=== PATIENT | male | born 1955 | race Caucasian/White ===

== ENCOUNTER → 2024-06-21 | Outpatient (CLI) | payer MEDICARE, MEDICAID, SELFPAY ==
[2024-06-21 11:33] LABS: Basophils % (Auto) 1 % (0-2.5); Eosinophils # (Auto) 0.3 Thou/mm3 (0.0-0.5); Eosinophils % (Auto) 4 % (0-10); Hematocrit 37.2 % (41.0-53.0); Hemoglobin 12.7 g/dL (13.5-16.0); Immature Granulocytes % (Auto) 0 % (0-0); Immature Granulocytes Auto 0.01 Thou/mm3 (0.00-0.00); Lymphocytes # (Auto) 1.5 Thou/mm3 (1.0-4.8); Lymphocytes % (Auto) 21 % (10-50); Mean Corpuscular HGB Conc 34.1 g/dl (31.0-37.0); Mean Corpuscular Hemoglobin 30.8 pg (25.0-35.0); Mean Corpuscular Volume 90 fL (80-100); Monocytes # (Auto) 0.5 Thou/mm3 (0.0-0.8); Monocytes % (Auto) 8 % (0-12); Neutrophils # (Auto) 4.6 Thou/mm3 (1.8-7.7); Neutrophils % (Auto) 67 % (37-80); Nucleated Red Blood Cell % 0 /100 WBC (0); Platelet Count 184 Thou/mm3 (140-440); RDW Standard Deviation 44.2 fL (35.1-43.9); Red Blood Count 4.12 Miln/mm3 (4.50-5.90); White Blood Count 6.9 Thou/mm3 (3.8-10.6)
[2024-06-21 11:36] LABS: INR 1.1 (0.9-1.3); Prothrombin Time 11.9 Seconds (9.0-12.2)
[2024-06-21 11:49] LABS: Glucose Estimated Average 217 mg/dL (80-131); Hemoglobin A1C 9.2 % Hgb (4.8-6.0)
[2024-06-21 11:55] LABS: Alanine Aminotransferase 42 U/L (10-49); Albumin, Serum 4.1 gm/dL (3.4-4.8); Albumin/Globulin Ratio 2.1 (1.2-2.2); Alkaline Phosphatase 126 U/L (46-116); Anion Gap 6 (7-16); Aspartate Amino Transferase 17 U/L (0-34); BUN/Creatinine Ratio 16 Ratio (12-20); Bilirubin,Total 0.6 mg/dL (0.3-1.2); Blood Urea Nitrogen 13 mg/dL (9-23); Calcium 9.6 mg/dL (8.3-10.6); Calcium (Corrected) 9.6 mg/dL (8.5-10.1); Carbon Dioxide 27.9 mMol/L (20.0-31.0); Chloride 101 mMol/L (98-107); Creatinine (Component) 0.8 mg/dL (0.6-1.3); Glucose 269 mg/dL (74-106); Osmolality,Calculated 279 (275-295); Potassium 4.1 mMol/L (3.4-5.1); Sodium 135 mMol/L (136-145); Total Protein 6.1 gm/dL (5.7-8.2); eGFR > 60 See Note
== END | disposition home or self-care (01) ==
LOC: COPL 10:34
PROVIDERS: PCP Family Medicine; Referring Provider Family Medicine; Visit Provider Family Medicine
DX: E11.65 Type 2 diabetes mellitus with hyperglycemia (principal); M54.50 Low back pain, unspecified
CPT/HCPCS: 36415; 80053; 83036; 85025; 85610; 85730

== ENCOUNTER 2024-10-09 09:43 | Inpatient (IN) | payer MEDICARE, MEDICAID, SELFPAY ==
[2024-10-09] VITALS (42 sets, daily range): BP systolic 80–132; BP diastolic 44–112; PULSE 74–94; RESP 14–22; TEMP 36.3–38.3; O2SAT 84–100; BMI 24.8; BMI 24.1
--- NOTE | 2024-10-09 09:50 | XR_ITS ---
Examination: AP chest single view Technique one AP portable semiupright chest single view Exam date and time: August 23, 2021 at 0655 hrs. Comparison August 31, 2021 Indications: Chest pain today. Findings: Normal heart size Mild vascular congestion. No lobar pneumonia Significant osteopenia Impression: Mild vascular congestion
--- NOTE | 2024-10-09 09:50 | EKG_ITS ---
[facility] Test Date: 2024-10-09 Pat Name: HALIMA STAHL Department: Room: - Gender: Male Gi Technician: : 1955 Requested By: Pallavi Garza Order Number: [id number] Reading MD: Pallavi Garza Measurements Intervals [place] Rate: 92 P: 50 VT: 190 QRS: 43 QRSD: 82 T: 64 QT: 341 QTc: 423 Interpretive Statements SINUS RHYTHM Compared to ECG 03/25/2020 18:40:41 No significant changes /store/S0/[id number].pdf
--- NOTE | 2024-10-09 10:11 | PD.EDADULT ---
ED General RME/HPI General Chief complaint: Altered Mental Status Stated complaint: ALTERED MORE THAN NORMAL; HX DEMENTIA Time Seen by Provider: 10/09/24 09:50 Arrival date/time: 10/09/24 09:43 RME / HPI RME / HPI narrative: DR. FREIRE MAIN ED EVALUATION: 69 year old male with past medical history significant for dementia, hypertension, and insulin-dependent diabetes mellitus presents to the Emergency Department [facility] with complaint of altered mental status, confused more than usual per ex-. Patient states his bed is high off the floor and he tried to get out of bed but his slippers were slippery and he slipped and fell; patient denies hurting himself and denies any injury. Patient states there is nothing wrong with him that his ex- made him come. However, patient does have a productive cough, hypoxia satting at 84% on room air, and a fever. He states he has the fever for 3 weeks. He is a former smoker, he quit August 2024. Related Data Home Medications ?Medication ?Instructions ?Recorded ?Confirmed dulaglutide 1.5 mg/0.5 mL 1.5 mg subcut QWEEK 03/23/20 08/31/21 subcutaneous pen injector (Trulicity) insulin aspart U-100 100 unit/mL See Rx Instructions .Route .COMPLEX 03/23/20 08/31/21 (3 mL) subcutaneous pen (Novolog FlexPen U-100 Insulin aspart) cyclobenzaprine 10 mg tablet 10 mg PO Q8H 08/23/21 08/31/21 dapagliflozin propanediol 10 mg 10 mg PO QDAY 08/23/21 08/31/21 tablet (Farxiga) metformin 1,000 mg tablet 1,000 mg PO BID 08/23/21 08/31/21 Previous Rx's ?Medication ?Instructions ?Recorded insulin glargine 100 unit/mL (3 40 unit (0.4 mL) subcut QPM #15 mL 08/29/21 mL) subcutaneous pen (Lantus Solostar U-100 Insulin) Allergies Allergy/AdvReac Type Severity Reaction Status Date / Time Sulfa (Sulfonamide Allergy Severe RASH Verified 10/09/24 09:44 Antibiotics) Review of Systems Review of Systems Systems Reviewed: All systems reviewed, normal except as documented Narrative Review of Systems: GEN: + fever, no chills, no weight loss EYES: No discharge, no visual changes, no pain HEENT: No ear pain, no congestion, no sore throat PULM: No shortness of breath, + productive cough CV: No chest pain, no dyspnea on exertion, no palpitations GI: No nausea, no vomiting, no diarrhea, no pain, no constipation : No frequency, no urgency and no dysuria MUSC/SKEL: No joint pain, no back pain SKIN: No rash PSYCH: No hallucinations, no depression HEME/LYMPH: No easy bleeding or bruising tendencies NEURO: No weakness, no headache, + altered mental status, confused more than usual per ex- Past Medical History Past Medical History NEUROLOGIC: Positive Neurological Disorders, Peripheral Neuropathy and Head Trauma CARDIAC: Positive Cardiac Disorders and Hypertension; Negative Hypercholesterolemia or Congestive Heart Failure RESPIRATORY: Positive Pneumonia; Negative Chronic Obstructive Pulmonary Disease (COPD) or Asthma GASTROINTESTINAL: Negative Gastrointestinal Disorders GENITOURINARY: Positive Genitourinary Disorders and Kidney Stones; Negative Renal Disease REPRODUCTIVE: Negative Breast Cancer MUSCULOSKELETAL: Positive Musculoskeletal Disorders, Arthritis and Fractures ENT: Positive Deafness and Head Trauma ENDOCRINE: Positive Endocrine Disorders and Diabetes Mellitus Type 2; Negative Diabetes Mellitus Type 1 HEMATOLOGIC: Negative Blood Disorders or Sickle Cell Disease OTHER HISTORY: Positive Measles and Mumps; Negative Autoimmune Disease, Blood Transfusions, Anesthesia Reactions, MRSA, Vancomycin-Resistant Enterococci, Human Immunodeficiency Virus (HIV), Chicken Pox, Pertussis, Clostridium Difficile, Cancer or Breast Cancer Family History FAMILY HISTORY: Positive Family Cardiac Disorders and Family Cancer Surgical History SURGICAL: Positive Tonsillectomy; Negative Cardiac Surgery Social History SMOKING STATUS: Former smoker SUBSTANCE USE: does not use ED Exam Narrative Physical exam: GENERAL APPEARANCE: alert and oriented x 4, well-developed, well-nourished, no acute distress; patient has a productive sounding cough. VITALS: All vitals were reviewed and the pulse ox is 84% on room air, which is hypoxic according to my interpretation. HEENT: Normocephalic, atraumatic; pupils equal, round, reactive to light; EOMI; mucous membranes pink, moist; oropharynx clear NECK: Supple LUNGS: CTABL; no wheezes, no rales, no rhonchi HEART: Regular rate, regular rhythm; normal S1, S2; no murmurs ABDOMEN: non distended; normal BS; soft, no tenderness, no guarding, no rebound; no masses, no organomegaly, no hernia BACK: no CVA tenderness EXTREMITIES: atraumatic; no edema NEUROLOGIC: awake; alert and oriented x4; cranial nerves II-XII grossly intact; no focal sensory or motor deficits PSYCHIATRIC: appropriate mood and affect SKIN: warm, dry, normal color; no rashes Course Course Course Narrative: 1059: Sepsis alert initiated. Orders made at this time are congruent with ED Adult Sepsis Order List. Re-evaluation is to be completed. 1130: Sepsis reassessment performed consisting of lab review, vitals, physical exam including auscultation of heart, lungs, and visual evaluation of capillary refills, mucosal membranes and extremities. Quality Measures none Orders Category Date Time Status Bedside Blood Glucose NOW Care 10/09/24 09:51 Active Bedside COVID-19 Antigen Test NOW Care 10/09/24 09:51 Active Bedside Influenza A&B Antigen Test NOW Care 10/09/24 09:51 Completed Blood Donor Recruiter Supervisor NOW Care 10/09/24 09:50 Active EKG (ED ONLY) *Do not use* NOW Care 10/09/24 09:[address] cervical spine wo con Stat Exams 10/09/24 12:[address] head/brain wo con Stat Exams 10/09/24 12:08 Completed EKG (ED Only) Stat Exams 10/09/24 09:50 Draft XR chest 1V portable Stat Exams 10/09/24 09:50 Completed Alcohol, Blood Medical Stat Lab 10/09/24 12:06 Completed Ammonia Stat Lab 10/09/24 12:06 Completed B-Type Natriuretic Peptide Stat Lab 10/09/24 10:21 Completed Blood Culture (Lab) Stat Lab 10/09/24 10:17 Received CBC Stat Lab 10/09/24 10:21 Completed Comprehensive Metabolic Panel Stat Lab 10/09/24 10:21 Completed Drug Screen,Urine Stat Lab 10/09/24 11:59 Ordered Lactate (Lactic Acid) Stat Lab 10/09/24 10:21 Completed Lipase Stat Lab 10/09/24 10:21 Completed Magnesium Stat Lab 10/09/24 10:21 Completed Partial Thromboplastin Time Stat Lab 10/09/24 10:21 Completed Procalcitonin Stat Lab 10/09/24 10:21 Completed Prothrombin Time with INR Stat Lab 10/09/24 10:21 Completed Troponin I Stat Lab 10/09/24 10:21 Completed Urinalysis Stat Lab 10/09/24 10:40 Completed Urine Culture Stat Lab 10/09/24 10:40 Received Acetaminophen Tab [Tylenol Tab] Med 10/09/24 09:58 Discontinued 650 mg PO X1 ONE Azithromycin Inj [Zithromax Inj] 500 mg Med 10/09/24 11:59 Discontinued Sodium Chloride 0.9% 250 ml [Ns] 250 ml IV X1 cefTRIAXone [Rocephin] 1,000 mg Med 10/09/24 11:59 Discontinued SODIUM CHLORIDE 0.9% (Popper) [Ns 0.9% (P)] 50 ml IV X1 Vital Signs Vital signs: Vital Signs Temperature 101.0 F H 10/09/24 09:51 Pulse Rate 93 10/09/24 09:51 Respiratory Rate 20 10/09/24 09:51 Blood Pressure 99/64 10/09/24 09:51 Pulse Oximetry (%) 84 L 10/09/24 09:51 Oxygen Delivery Method Room Air 10/09/24 09:51 Procedures -ED EKG Interpretation #1: Date of EK10/09/24 Time of EK:57 Rate: 92 Interpretation: Interpreted by me Additional EKG comment: sinus rhythm, rate 92, no acute ischemic changes MDM Patient data External records reviewed:: [facility] previous records (Reviewed last admission discharge dated 09/12/21 patient admitted for the following: DKA (diabetic ketoacidosis)) and EMS form Clinical information provided by:: patient, EMS and other (specify) (ex-) Social determinants that could affect healthcare access:: other (specify) (He is a former smoker, he quit August 2024. ) Patient has the following chronic illnesses:: dementia, hypertension, and insulin-dependent diabetes mellitus How is presenting disease/condition affected by chronic disease/condition?: exacerbated by Evaluation data The following diagnostics were reviewed and interpreted by me:: lab results, radiology exam(s) and EKG tracing(s) (EKG#1: EKG at 0957 hours. Interpreted by me: sinus rhythm, rate 92, no acute ischemic changes) Lab and/or radiology exams considered but not ordered:: none Interpretation Summary: Procedure(s): XR chest 1V portable Accession Number(s): [id number] cc: Agusto Dimas MD; NO PRIMARY/FAMILY,PHYSICIAN; Pallavi Freire MD~ Examination: AP chest single view Technique one AP portable semiupright chest single view Exam date and time: August 23, 2021 at 0655 hrs. Comparison August 31, 2021 Indications: Chest pain today. Findings: Normal heart size Mild vascular congestion. No lobar pneumonia Significant osteopenia Impression: Mild vascular congestion Dictated By: Agusto Dimas MD Procedure(s): CT head/brain wo cox monett Accession Number(s): [id number] cc: Agusto Dimas MD; NO PRIMARY/FAMILY,PHYSICIAN; Pallavi Freire MD~ Examination: CT brain head without contrast. 2-D sagittal coronal reconstructions Date and time of exam:October 09, 2024 1255 hrs. Indications: Onset altered mental status today CTDI: vol (mGy):57.4 DLP: (mGycm):1154 Technique: Multiple CT axial sections of the brain have been obtained, 5 mm slice thickness. Contrast has not been administered. 2-D sagittal, coronal reconstructions have been obtained Low dose protocols were performed. One or more of the following dose reduction techniques were used; automated exposure control, adjustment of the mA and/or KV according to patient size, use of iterative reconstruction technique. Findings: No significant ventricular enlargement. Intra-axial or extra-axial hemorrhage density is not seen. No mass effect or midline shift Basal cisterns are not remarkable. Fourth ventricle is midline. Cranial vault intact. Impression: Negative for acute hemorrhage, mass effect or midline shift Advise clinical correlation follow-up accordingly Dictated By: Agusto Dimas MD Procedure(s): CT cervical spine wo cox monett Accession Number(s): [id number] cc: Agusto Dimas MD; NO PRIMARY/FAMILY,PHYSICIAN; Pallavi Freire MD~ Examination: CT cervical spine without contrast 2-D sagittal reconstructions 2-D coronal reconstructions 3-D reconstructions. Exam date and time:October 09, 2024 1255 hrs. Indications: Patient fell today with into the neck, neck pain CTDI:vol (mGy) 15.9 DLP: (mGycm) 361 Technique: Multiple 2 mm axial sections of the cervical spine have been obtained. The coronal and sagittal reconstructions have been obtained. 3-D reconstructions have been obtained. Low dose protocols were performed. One or more of the following dose reduction techniques were used; automated exposure control, adjustment of the mA and/or KV according to patient size, use of iterative reconstruction technique. Findings: Axial sections demonstrate intact base of the skull. C1 exhibit satisfactory relationship to the odontoid. No acute cervical vertebral body fracture seen. Alignment posterior spinous processes satisfactory. Impression: No acute cervical fracture. Dictated By: Agusto Dimas MD Medications Medications considered but not ordered:: none Medication administrations:: Medication Administration History Acetaminophen (Acetaminophen 325 Mg Tablet) 650 mg PO Q6H PRN PRN Reason: Fever >101.5 Stop: 11/08/24 13:13 Acetaminophen (Acetaminophen 325 Mg Tablet) 650 mg PO Q6H PRN PRN Reason: PAIN SCALE 1-3 (mild Stop: 11/08/24 13:13 Albuterol/Ipratropium (Albuterol/Ipratropium (Duoneb) Rt Randi 3 Ml Nebu) 3 ml INH Q6HRRT YOSEF Stop: 11/08/24 18:59 Benzonatate (Benzonatate 100 Mg Capsule) 200 mg PO Q8HR PRN; Protocol PRN Reason: COUGH Stop: 11/08/24 13:18 Dextrose (Dextrose 50%-Water Inj 50 Ml Syringe) 25 ml IV Q15MIN PRN PRN Reason: BG 50-70 responsive npo pt Stop: 11/08/24 13:13 Dextrose (Dextrose 50%-Water Inj 50 Ml Syringe) 50 ml IV Q15MIN PRN PRN Reason: BG <50 OR BG <70 & pt unresponsive Stop: 11/08/24 13:13 Donepezil HCl (Donepezil Hcl 5 Mg Tablet) 5 mg PO HS [facility] Stop: 11/08/24 20:59 Glucagon (Glucagon Inj 1 Mg Vial) 1 mg IM Q15MIN PRN PRN Reason: BG <70, and no IV access Heparin Sodium (Porcine) (Heparin Sod Inj 5000 Unit/Ml Vial) 5,000 unit SC BID [facility] Stop: 10/23/24 13:29 Lactated Ringer's (Lactated Ringers) 1,000 mls @ 75 mls/hr IV .[id number] [facility] Stop: 11/08/24 13:14 Ceftriaxone Sodium 1,000 mg/ (Sodium Chloride) 50 mls @ 100 mls/hr IV QDAY YOSEF Stop: 10/17/24 08:59 Azithromycin 500 mg/ Sodium (Chloride) 250 mls @ 250 mls/hr IV QDAY YOSEF Stop: 10/13/24 08:59 Magnesium Sulfate (Magnesium Sulfate Ivpb) 2 gm in 50 mls @ 25 mls/hr IV X1 ONE Stop: 10/09/24 15:28 Insulin Human Lispro (Insulin Lispro (Admelog) 1 Unit/0.01 Ml Unit) 0 unit SC AC [facility]; Protocol Stop: 11/08/24 16:59 Memantine (Memantine Hcl 5 Mg Tablet) 10 mg PO BID [facility] Stop: 11/08/24 20:59 Ondansetron HCl (Ondansetron Inj 2 Mg/Ml Inj 2 Ml) 4 mg IV Q6H PRN; Protocol PRN Reason: NAUSEA OR VOMITING Stop: 11/08/24 13:13 Oxycodone/Acetaminophen (Oxycodone/Apap 5/325 Tablet) 1 tab PO Q6H PRN PRN Reason: PAIN SCALE 4-10(Mod-Sev Stop: 10/14/24 13:13 Pantoprazole Sodium (Pantoprazole Inj 40 Mg Vial) 40 mg IVP QDAY YOSEF Stop: 11/08/24 13:29 Sennosides (Senna Tablet) 1 tab PO QDAY PRN; Protocol PRN Reason: constipation Stop: 11/08/24 13:13 Discontinued Medications Acetaminophen (Acetaminophen 325 Mg Tablet) 650 mg PO X1 ONE Stop: 10/09/24 09:59 Last Admin: 10/09/24 10:28 Dose: 650 mg Documented By: VRS Haloperidol Lactate (Haloperidol Lact Inj 5 Mg/Ml Vial) 5 mg IM X1 ONE Stop: 10/09/24 13:56 Azithromycin 500 mg/ Sodium (Chloride) 250 mls @ 250 mls/hr IV X1 ONE Stop: 10/09/24 12:58 Ceftriaxone Sodium 1,000 mg/ (Sodium Chloride) 50 mls @ 100 mls/hr IV X1 ONE Stop: 10/09/24 12:28 Lactated Ringer's (Lactated Ringers) 1,000 mls @ 999 mls/hr IV .Q1H1M ONE Stop: 10/09/24 14:14 Lactated Ringer's (Lactated Ringers) 500 mls @ 999 mls/hr IV .Q31M ONE Stop: 10/09/24 13:44 Lidocaine (Lidocaine 5% 1 Patch) 1 patch TOP X1 ONE Stop: 10/09/24 13:37 see above Consultations Consultation(s) initiated? (list below): Yes Consultation #1 (Physician, Specialty, Details): Discussed test HPI, PMHx, lab, radiology results and/or management with hospitalist. Will admit for further evaluation and management. Accepts patient for admission. Time: 12:25 Diagnosis Differential Diagnosis ED Complaint MDM: URI, pneumonia, sepsis Most likely diagnosis given after review of the tests above:: Sepsis Pneumonia UTI Admission Indicated Admission indicated?: indicated Explain why admission is indicated or not indicated:: Diagnoses meet admission criteria. Admission Request Was there a request for admission?: Yes Admission Attestation Admission request attestation: Discussed case with [] from Hospitalist service regarding admission. Discussed patients ED course, exam findings, labs, and radiology results. The Hospitalist [agrees,declines] to accept the patient for admission. Disposition Plan Disposition Plan: Admit Medical Decision Making MDM Narrative MDM Narrative: I, Niki Mcghee, am scribing for and in the presence of Dr. Freire. Differential Diagnosis Differential Diagnosis: URI, pneumonia, sepsis Lab Data 10/09/24 10:21 10/09/24 10:21 Labs: Lab Results 10/09/24 10/09/24 10/09/24 Range/Units 10:21 10:40 12:06 WBC 13.9 H (3.8-10.6) Thou/mm3 RBC 3.81 L (4.50-5.90) Miln/mm3 Hgb 11.6 L (13.5-16.0) g/dL Hct 33.7 L (41.0-53.0) % MCV 89 (80-100) fL MCH 30.4 (25.0-35.0) pg MCHC 34.4 (31.0-37.0) g/dl RDW Std Deviation 43.1 (35.1-43.9) fL Plt Count 278 (140-440) Thou/mm3 Neut % (Auto) 85 H (37-80) % Lymph % (Auto) 7 L (10-50) % [place] % (Auto) 8 (0-12) % Eos % (Auto) 0 (0-10) % Baso % (Auto) 0 (0-2.5) % Neut # (Auto) 11.8 H (1.8-7.7) Thou/mm3 Lymph # (Auto) 0.9 L (1.0-4.8) Thou/mm3 [place] # (Auto) 1.1 H (0.0-0.8) Thou/mm3 Eos # (Auto) 0.0 (0.0-0.5) Thou/mm3 Baso # (Auto) 0.0 (0.0-0.2) Thou/mm3 Immature Gran # (Auto) 0.09 H (0.00-0.00) Thou/mm3 Absolute Nucleated RBC 0.00 (0.00-0.00) Thou/mm3 Immature Gran % 1 H (0-0) % Nucleated RBC % 0 (0) /100 WBC PT 12.4 H (9.0-12.2) Seconds INR 1.1 (0.9-1.3) APTT 30.2 (22.0-36.0) Seconds Sodium 140 (136-145) mMol/L Potassium 5.0 (3.4-5.1) mMol/L Chloride 104 (98-107) mMol/L Carbon Dioxide 29.9 (20.0-31.0) mMol/L Anion Gap 6 L (7-16) BUN 29 H (9-23) mg/dL Creatinine 1.6 H (0.6-1.3) mg/dL Estim Creat Clear Calc 50.6 L (>60) mL/min eGFR 46 L (60 - ) See Note BUN/Creatinine Ratio 18 (12-20) Ratio Glucose 72 L (74-106) mg/dL Calculated Osmolality 284 (275-295) Lactic Acid 2.6 H (0.4-2.0) mMol/L Calcium 9.6 (8.3-10.6) mg/dL Corrected Calcium 9.7 (8.5-10.1) mg/dL Magnesium 1.9 (1.6-2.6) mg/dL Iron 13 L (65-175) mcg/dL TIBC 319 (250-425) mcg/dL Iron Saturation 4 L (20-55) % Unsat Iron Binding 306 H (225-295) Total Bilirubin 0.6 (0.3-1.2) mg/dL AST 354 H (0-34) U/L ALT 173 H (10-49) U/L Alkaline Phosphatase 197 H (46-116) U/L Ammonia < 10 L (11-32) uMol/L Troponin I < 0.020 (0.0-0.045) ng/mL B-Natriuretic Peptide 177 H (0-100) pg/mL Total Protein 6.3 (5.7-8.2) gm/dL Albumin 3.9 (3.4-4.8) gm/dL Globulin 2.4 (2.3-3.5) gm/dL Albumin/Globulin Ratio 1.6 (1.2-2.2) Lipase 20 (12-53) U/L Procalcitonin 18.38 H (0.0-0.49) ng/ml Ur Collection Type Clean Catch Urine Color Yellow (Lt Yel-Yel) Urine Clarity Turbid A (Clear/Hazy) Urine pH 5.5 (5.0-7.0) Ur Specific [place] 1.029 (1.001-1.035) Urine Protein 1+ A (Neg - Trace) Urine Glucose (UA) 4+ A (Negative) Urine Ketones Trace (Negative) Urine Blood Negative (Negative) Urine Nitrite Negative (Negative) Urine Bilirubin Negative (Negative) Urine Urobilinogen (Auto) Negative (0.0-1.0) mg/dL Ur Leukocyte Esterase Positive (Negative) Urine RBC 3 (0-3) /hpf Urine WBC 215 H (0-5) /hpf Ur Squamous Epith Cells 11 H (0-5) /hpf Urine Bacteria 4+ A (None) Ethyl Alcohol < 3.0 (0-10.0) mg/dL Critical Care Time Critical Care Time Critical Care Time: Yes Total Critical Care Time (min.): 30 Attestation: The high probability of sudden, clinically significant deterioration in the patient?s condition required the highest level of my preparedness to intervene urgently. The services I provided to this patient were to treat and/or prevent clinically significant deterioration. Services included the following: chart data review, reviewing nursing notes and/or old charts, documentation time, client relationship consultant collaboration regarding findings and treatment options, medication orders and management, direct patient care, vital sign assessments and ordering, interpreting and reviewing diagnostic studies and lab tests. Aggregate critical care time includes only time during which I was engaged in work directly related to the patient?s care, as described above, whether at bedside or elsewhere in the Emergency Department. It did not include time spent performing other reported procedures or the services of residents, students, nurses or physician assistants. Discharge Plan Plan Patient Disposition: Admit Acute Care w/in Hospital Problem List Clinical Impression: Sepsis, Pneumonia, UTI (urinary tract infection)
--- NOTE | 2024-10-09 10:20 | PC.NURSE ---
PT BROUGHT IN BY EMS FROM HOME FOR INCREASED CONFUSION. PER REPORT PT WAS AT HOME AND WOKE UP MORE CONFUSED SO CALLED 911. ON ARRIVAL PT IS ALERT BUT CONFUSED. PT IS AWARE THAT HE IS IN THE HOSPITAL BUT DOES NOT RECALL THE DATE. PT THINKS THAT IT'S 2018 THEN WHEN ASKED AGAIN HE RESPONDED 2002. PT IS COOPERATIVE AT THIS TIME. PT DOES PRESENT WITH A COUGH AND SPO2 ON RA IS LOW AT 84%. PT WAS PLACED ON O2 @ 2 L/M AND SPO2 CAME UP TO 96%. PT WAS CONNECTED TO MONITOR AND IS CLOSE TO NURSES STATION. CALL LIGHT WITH IN REACH.
[2024-10-09 10:26] LABS: Lactate (Lactic Acid) 2.6 mMol/L (0.4-2.0)
[2024-10-09] MEDS: ACETAMINOPHEN 325 MG TABLET 650 MG PO (10:28)
[2024-10-09 10:32] LABS: Basophils % (Auto) 0 % (0-2.5); Eosinophils % (Auto) 0 % (0-10); Hematocrit 33.7 % (41.0-53.0); Hemoglobin 11.6 g/dL (13.5-16.0); Immature Granulocytes % (Auto) 1 % (0-0); Immature Granulocytes Auto 0.09 Thou/mm3 (0.00-0.00); Lymphocytes # (Auto) 0.9 Thou/mm3 (1.0-4.8); Lymphocytes % (Auto) 7 % (10-50); Mean Corpuscular HGB Conc 34.4 g/dl (31.0-37.0); Mean Corpuscular Hemoglobin 30.4 pg (25.0-35.0); Mean Corpuscular Volume 89 fL (80-100); Monocytes # (Auto) 1.1 Thou/mm3 (0.0-0.8); Monocytes % (Auto) 8 % (0-12); Neutrophils # (Auto) 11.8 Thou/mm3 (1.8-7.7); Neutrophils % (Auto) 85 % (37-80); Nucleated Red Blood Cell % 0 /100 WBC (0); Platelet Count 278 Thou/mm3 (140-440); RDW Standard Deviation 43.1 fL (35.1-43.9); Red Blood Count 3.81 Miln/mm3 (4.50-5.90); White Blood Count 13.9 Thou/mm3 (3.8-10.6)
[2024-10-09 10:41] LABS: INR 1.1 (0.9-1.3); Partial Thromboplastin Time 30.2 Seconds (22.0-36.0); Prothrombin Time 12.4 Seconds (9.0-12.2)
[2024-10-09 10:51] LABS: Alanine Aminotransferase 173 U/L (10-49); Albumin, Serum 3.9 gm/dL (3.4-4.8); Albumin/Globulin Ratio 1.6 (1.2-2.2); Alkaline Phosphatase 197 U/L (46-116); Anion Gap 6 (7-16); Aspartate Amino Transferase 354 U/L (0-34); BUN/Creatinine Ratio 18 Ratio (12-20); Bilirubin,Total 0.6 mg/dL (0.3-1.2); Blood Urea Nitrogen 29 mg/dL (9-23); Calcium 9.6 mg/dL (8.3-10.6); Calcium (Corrected) 9.7 mg/dL (8.5-10.1); Carbon Dioxide 29.9 mMol/L (20.0-31.0); Chloride 104 mMol/L (98-107); Creatinine (Component) 1.6 mg/dL (0.6-1.3); Estimated Creatinine Clearance 50.6 mL/min (>60); Globulin 2.4 gm/dL (2.3-3.5); Glucose 72 mg/dL (74-106); Lipase 20 U/L (12-53); Magnesium 1.9 mg/dL (1.6-2.6); Osmolality,Calculated 284 (275-295); Procalcitonin 18.38 ng/ml (0.0-0.49); Sodium 140 mMol/L (136-145); Total Protein 6.3 gm/dL (5.7-8.2); Troponin I < 0.020 ng/mL (0.0-0.045); eGFR 46 See Note
[2024-10-09 10:52] LABS: B-Type Natriuretic Peptide 177 pg/mL (0-100)
[2024-10-09 10:59] LABS: Collection Type, Urine Clean Catch
[2024-10-09 11:35] LABS: Bacteria,Urine 4+; Bilirubin,Urine Negative (Negative); Blood,Urine Negative (Negative); Clarity,Urine Turbid (Clear/Hazy); Color,Urine Yellow (Lt Yel-Yel); Glucose, Urine 4+ (Negative); Ketones,Urine Trace (Negative); Leukocyte Esterase,Urine Positive (Negative); Nitrite,Urine Negative (Negative); PH,Urine 5.5 (5.0-7.0); Protein,Urine 1+ (Neg - Trace); RBC,Urine 3 /hpf (0-3); Specific Gravity,Urine 1.029 (1.001-1.035); Squamous Epithelial Cell,Urine 11 /hpf (0-5); Urobilinogen,Urine Negative mg/dL (0.0-1.0); WBC,Urine 215 /hpf (0-5)
--- NOTE | 2024-10-09 12:08 | XR_ITS ---
Examination: CT brain head without contrast. 2-D sagittal coronal reconstructions Date and time of exam:October 09, 2024 1255 hrs. Indications: Onset altered mental status today CTDI: vol (mGy):57.4 DLP: (mGycm):1154 Technique: Multiple CT axial sections of the brain have been obtained, 5 mm slice thickness. Contrast has not been administered. 2-D sagittal, coronal reconstructions have been obtained Low dose protocols were performed. One or more of the following dose reduction techniques were used; automated exposure control, adjustment of the mA and/or KV according to patient size, use of iterative reconstruction technique. Findings: No significant ventricular enlargement. Intra-axial or extra-axial hemorrhage density is not seen. No mass effect or midline shift Basal cisterns are not remarkable. Fourth ventricle is midline. Cranial vault intact. Impression: Negative for acute hemorrhage, mass effect or midline shift Advise clinical correlation follow-up accordingly
--- NOTE | 2024-10-09 12:28 | PC.NURSE ---
DR. LICONA AND RESIDENT AT [facility].
[2024-10-09 12:37] LABS: Alcohol, Blood Medical < 3.0 mg/dL (0-10.0)
[2024-10-09 12:43] LABS: Ammonia < 10 uMol/L (11-32)
--- NOTE | 2024-10-09 12:51 | XR_ITS ---
Examination: CT cervical spine without contrast 2-D sagittal reconstructions 2-D coronal reconstructions 3-D reconstructions. Exam date and time:October 09, 2024 1255 hrs. Indications: Patient fell today with into the neck, neck pain CTDI:vol (mGy) 15.9 DLP: (mGycm) 361 Technique: Multiple 2 mm axial sections of the cervical spine have been obtained. The coronal and sagittal reconstructions have been obtained. 3-D reconstructions have been obtained. Low dose protocols were performed. One or more of the following dose reduction techniques were used; automated exposure control, adjustment of the mA and/or KV according to patient size, use of iterative reconstruction technique. Findings: Axial sections demonstrate intact base of the skull. C1 exhibit satisfactory relationship to the odontoid. No acute cervical vertebral body fracture seen. Alignment posterior spinous processes satisfactory. Impression: No acute cervical fracture.
--- NOTE | 2024-10-09 13:03 | PC.NURSE ---
Responded to code star(fall) in CT, per tech. patient fell out of wheelchair onto coccyx, patient denies pain to coccyx,no obvious injury to that area noted, however, abrasion noted to right forearm and patient c/o 5/10 pain to that area, Dr. Beltran, admitting DrAlice Responded and evaluated patient for injuries, new orders received.
[2024-10-09 13:24] LABS: Reflex Lactate? Y
--- NOTE | 2024-10-09 13:24 | XR_ITS ---
Examination: Forearm, right, 2 views. Technique: Forearm, AP, lateral 2 views Date and time of exam: October 09, 2024 1519 hrs. Indications: Patient fell today with into the forearm, forearm pain. Findings: No acute fracture No dislocation No foreign body Impression: No acute fracture
--- NOTE | 2024-10-09 13:35 | XR_ITS ---
Examination: Abdomen sonogram, Limited Date and time of exam: October 09, 2024 1632 hrs. Indications: Elevated liver function tests on laboratory examination today with abdominal pain Technique: Real-time yadav scale transabdominal sonographic images of the upper abdomen obtained. Findings: Multiple gallstones Gallbladder wall 0.2 cm Common bile duct 0.4 cm Pancreatic head 2.2 cm Liver 17.5 cm nodular in contour fatty infiltration Normal hepatopedal portal venous flow Patent IVC Impression: Cholelithiasis, negative for cholecystitis Hepatomegaly, fatty liver, primary hepatocellular disease
--- NOTE | 2024-10-09 13:42 | PC.NURSE ---
CODE ALEXEY CALLED AT 1336 DUE PT WANTING TO LEAVE HOME. PT IS AGITATED WHEN THIS NURSE IS IN THE ROOM. SON WAS CALLED TO TALK TO PT AND GOT PT TO CALM DOWN. PT IS SITTING AND COOPERATING AT THIS TIME.
[2024-10-09] MEDS: HALOPERIDOL LACT INJ 5 MG/ML VIAL IM (14:02)
[2024-10-09 14:23] LABS: Iron 13 mcg/dL (65-175); Percent Iron Saturation 4 % (20-55); Total Iron Binding Capacity 319 mcg/dL (250-425); Unsaturated Iron Binding 306 (225-295)
--- NOTE | 2024-10-09 14:25 | PC.NURSE ---
FSBS 62mg/dl, Dr Beltran made aware ok to feed patient, patient provided with turkey sandwich and orange juice. Removed right hand wrist restraint in order for patient to feed himself, patient more calm and cooperative at this time, primary nurse, Briseyda made aware.
--- NOTE | 2024-10-09 14:25 | PC.NURSE ---
PRISCILA BLACKBURN CALLED 2 ADDITIONAL TIMES, 1354 AND 1408 FOR INCREASED AGITATION AND WANTING TO LEAVE HOME. DR. FUENTES IS AT THE BESIDE.
[2024-10-09 14:37] LABS: Lactic Acid, 3 HR 2.6 mMol/L (0.4-2.0)
[2024-10-09] MEDS: HEPARIN SOD INJ 5000 UNIT/ML VIAL SC ×2 (14:37→21:29)
[2024-10-09] MEDS: cefTRIAXone 1,000 MG in SODIUM CHLORIDE 0.9% (Popper) 50 ML 100 MG IV (14:37)
[2024-10-09] MEDS: PANTOPRAZOLE INJ 40 MG VIAL IVP (14:37)
[2024-10-09] MEDS: RINGERS LACTATED 1000 ML 1,000 ML 999 ML IV ×2 (14:39→16:50)
[2024-10-09] MEDS: RINGERS LACTATED 500 ML 500 ML 999 ML IV (14:50)
--- NOTE | 2024-10-09 15:14 | PC.NURSE ---
REMOVED BILAT LEG RESTRAINTS AND LEFT ARM RESTRAINT. PT RESTING AT THIS TIME.
[2024-10-09] MEDS: AZITHROMYCIN INJ 500 MG in SODIUM CHLORIDE 0.9% 250 ML 250 ML 250 MG IV (15:33)
--- NOTE | 2024-10-09 15:34 | PD.RESHP ---
Documentation for date of: 10/09/24 [facility] History of Present Illness Chief complaint: Hypoxia, dysuria, cough History of present illness: This patient is a 69-year-old male with past medical history of vascular dementia, hypertension, insulin-dependent diabetes, diabetic neuropathy, history of diabetic foot, chronic pain on oxycodone presented on 10/09/2024 with chief complaint of altered mental status/confusion more than usual state per patient's ex- was present at the bedside, complained of frequency, urgency and dysuria with burning sensation, fever/chills, loss of balance and fell at home while getting out of the bed and also during CT imaging code star was called as patient fell on his back, productive cough and decreased appetite x 1 day ago. Patient was not feeling well from past few days and was complaining of chest tightness with fever chills, cough and has been complaining of burning sensation during urination. He does have issues with balance per patient's . Patient was a former smoker and quit smoking recently. Patient follows with Dr. Toribio as outpatient. Patient follows up with neurologist, Dr. York as outpatient. In the ED, patient was hypotensive with blood pressure 99/64, heart rate 79, respiratory 16 and fever of 101.1 with hypoxia 84% on room air was placed on 4 L oxygen which improved saturation to 90%. Patient met 2/4 SIRS criteria with fever and white count elevation with possible source of infection urine and pneumonia. Labs revealed leukocytosis white count 13.9, normocytic anemia hemoglobin 11.6, normal platelet count. Coagulation panel was unremarkable. Chemistry panel showed borderline hyperkalemia. NELIDA with BUN 29 creatinine 1.6 baseline 0.8 from 06/21/2024, blood glucose 72 mg/dL. Lactic acidosis 2.6, magnesium 1.9. Iron 13. Elevated transaminases with AST 354, ALT 173 and ALP 197. Serum ammonia was negative. Troponin I was negative. BNP slightly elevated at 177. Procalcitonin 18.38. UA was turbid with proteinuria, glucose, pyuria, squamous cells and bacteria. Hep panel cocci was pending. Head CT was negative. Cervical spine CT was negative for fractures. EKG showed sinus rhythm with QTc 423. Chest x-ray showed mild vascular congestion.Patient rec Tylenol x1 in the ED. PMH: As above PSH:Not significant Allergies: Sulfa causes rash SH: Former smoker, quit drinking alcohol used to drink heavily. No history of illicit drug use. Home medications: Metformin 1000 mg twice daily, memantine 10 mg twice daily, donepezil 10 mg once daily in evening, oxycodone 1 tablet as needed, Trintellix 1 tablet daily, gabapentin 800 mg 3 times daily Patient is admitted for further workup and management of acute encephalopathy and sepsis likely secondary to UTI and possible CAP. Review of Systems Review of Systems Systems Reviewed: All systems reviewed, normal except as documented Past Medical History Past Medical History NEUROLOGIC: Positive Neurological Disorders, Peripheral Neuropathy and Head Trauma CARDIAC: Positive Cardiac Disorders and Hypertension; Negative Hypercholesterolemia or Congestive Heart Failure RESPIRATORY: Positive Pneumonia; Negative Chronic Obstructive Pulmonary Disease (COPD) or Asthma GASTROINTESTINAL: Negative Gastrointestinal Disorders GENITOURINARY: Positive Genitourinary Disorders and Kidney Stones; Negative Renal Disease REPRODUCTIVE: Negative Breast Cancer MUSCULOSKELETAL: Positive Musculoskeletal Disorders, Arthritis and Fractures ENT: Positive Deafness and Head Trauma ENDOCRINE: Positive Endocrine Disorders and Diabetes Mellitus Type 2; Negative Diabetes Mellitus Type 1 HEMATOLOGIC: Negative Blood Disorders or Sickle Cell Disease OTHER HISTORY: Positive Measles and Mumps; Negative Autoimmune Disease, Blood Transfusions, Anesthesia Reactions, MRSA, Vancomycin-Resistant Enterococci, Human Immunodeficiency Virus (HIV), Chicken Pox, Pertussis, Clostridium Difficile, Cancer or Breast Cancer Family History FAMILY HISTORY: Positive Family Cardiac Disorders and Family Cancer Surgical History SURGICAL: Positive Tonsillectomy; Negative Cardiac Surgery Social History SMOKING STATUS: Former smoker SUBSTANCE USE: does not use Exam Vital Signs Temp Pulse Resp BP Pulse Ox O2 Del Method O2 Flow Rate 98.3 F 82 18 96/57 L 91 L Nasal Cannula 3 10/09/24 15:21 10/09/24 15:21 10/09/24 15:21 10/09/24 15:21 10/09/24 15:21 10/09/24 12:18 10/09/24 15:21 Narrative Exam GENERAL APPEARANCE: Patient is confused and agitated. Saturating well on 4 L NC. HEENT: NC, AT. MMM. EOMI, clear conjunctiva, oropharynx clear. NECK: Supple without lymphadenopathy. No stiffness or restricted ROM. HEART: Sinus tachycardia with regular rhythm, normal S1/S2, no m/r/g LUNGS: CTAB, moving air well. Mild wheezing heard on auscultation ABDOMEN: Soft, nontender, nondistended with good bowel sounds heard. Punch test positive BACK: No CVAT, no obvious deformity. EXTREMITIES: Without cyanosis, clubbing or edema. Balance issue NEUROLOGICAL: Grossly nonfocal. Waxing and waning mentation with confusion Skin: Warm and dry without any rash. Psych: Patient is confused and waxing waning in mentation with agitation Results: Labs 10/10/24 06:22 10/10/24 06:22 Labs: Short CBC 10/09/24 Range/Units 10:21 WBC 13.9 H (3.8-10.6) Thou/mm3 Hgb 11.6 L (13.5-16.0) g/dL Hct 33.7 L (41.0-53.0) % Plt Count 278 (140-440) Thou/mm3 BMP 10/09/24 10:21 Sodium 140 Potassium 5.0 Chloride 104 Carbon Dioxide 29.9 BUN 29 H Creatinine 1.6 H Glucose 72 L Calcium 9.6 Cardiac Enzymes 10/09/24 Range/Units 10:21 Troponin I < 0.020 (0.0-0.045) ng/mL Liver Function 10/09/24 Range/Units 10:21 Total Bilirubin 0.6 (0.3-1.2) mg/dL AST 354 H (0-34) U/L ALT 173 H (10-49) U/L Alkaline Phosphatase 197 H (46-116) U/L Albumin 3.9 (3.4-4.8) gm/dL Urine 10/09/24 Range/Units 10:40 Urine Color Yellow (Lt Yel-Yel) Urine Clarity Turbid A (Clear/Hazy) Urine pH 5.5 (5.0-7.0) Ur Specific [place] 1.029 (1.001-1.035) Urine Protein 1+ A (Neg - Trace) Urine Glucose (UA) 4+ A (Negative) Quality Measures Quality Measures VTE prophylaxis (Heparin subcut) Advance care planning discussed with:: spouse Medications Home Medications and Allergies Home Medications ?Medication ?Instructions ?Recorded ?Confirmed ?Type dulaglutide 1.5 mg/0.5 mL 1.5 mg subcut QWEEK 03/23/20 10/09/24 History subcutaneous pen injector (Trulicity) insulin aspart U-100 100 unit/mL See Rx Instructions .Route .COMPLEX 03/23/20 10/09/24 History (3 mL) subcutaneous pen (Novolog FlexPen U-100 Insulin aspart) dapagliflozin propanediol 10 mg 10 mg PO QDAY 08/23/21 10/09/24 History tablet (Farxiga) metformin 1,000 mg tablet 1,000 mg PO BID 08/23/21 10/09/24 History donepezil 10 mg tablet 10 mg PO .PM 10/09/24 10/09/24 History gabapentin 800 mg tablet 800 mg PO TID 10/09/24 10/09/24 History insulin NPH isoph U-100 human 100 15 unit subcut TIDWM 10/09/24 10/09/24 History unit/mL (3 mL) subcutaneous pen (Humulin N NPH U-100 Insulin KwikPen) insulin glargine 100 unit/mL (3 60 unit subcut .AM 10/09/24 10/09/24 History mL) subcutaneous pen (Lantus Solostar U-100 Insulin) memantine 10 mg tablet 10 mg PO BID 10/09/24 10/09/24 History oxycodone 10 mg tablet 10 mg PO Q12H PRN pain 10/09/24 10/09/24 History vortioxetine 10 mg tablet 10 mg PO QDAY 10/09/24 10/09/24 History (Trintellix) Allergies Allergy/AdvReac Type Severity Reaction Status Date / Time Sulfa (Sulfonamide Allergy Severe RASH Verified 10/09/24 15:01 Antibiotics) Visit Medications Acetaminophen (Acetaminophen 325 Mg Tablet) 650 mg PO Q6H PRN PRN Reason: Fever >101.5 Stop: 11/08/24 13:13 Acetaminophen (Acetaminophen 325 Mg Tablet) 650 mg PO Q6H PRN PRN Reason: PAIN SCALE 1-3 (mild Stop: 11/08/24 13:13 Albuterol/Ipratropium (Albuterol/Ipratropium (Duoneb) Rt Randi 3 Ml Nebu) 3 ml INH Q6HRRT YOSEF Stop: 11/08/24 18:59 Benzonatate (Benzonatate 100 Mg Capsule) 200 mg PO Q8HR PRN; Protocol PRN Reason: COUGH Stop: 11/08/24 13:18 Dextrose (Dextrose 50%-Water Inj 50 Ml Syringe) 25 ml IV Q15MIN PRN PRN Reason: BG 50-70 responsive npo pt Stop: 11/08/24 13:13 Dextrose (Dextrose 50%-Water Inj 50 Ml Syringe) 50 ml IV Q15MIN PRN PRN Reason: BG <50 OR BG <70 & pt unresponsive Stop: 11/08/24 13:13 Donepezil HCl (Donepezil Hcl 5 Mg Tablet) 5 mg PO HS [facility] Stop: 11/08/24 20:59 Glucagon (Glucagon Inj 1 Mg Vial) 1 mg IM Q15MIN PRN PRN Reason: BG <70, and no IV access Heparin Sodium (Porcine) (Heparin Sod Inj 5000 Unit/Ml Vial) 5,000 unit SC BID [facility] Stop: 10/23/24 13:29 Last Admin: 10/09/24 14:37 Dose: 5,000 unit Lactated Ringer's (Lactated Ringers) 1,000 mls @ 75 mls/hr IV .[id number] [facility] Stop: 11/08/24 13:14 Ceftriaxone Sodium 1,000 mg/ (Sodium Chloride) 50 mls @ 100 mls/hr IV QDAY [facility] Stop: 10/17/24 08:59 Azithromycin 500 mg/ Sodium (Chloride) 250 mls @ 250 mls/hr IV QDAY [facility] Stop: 10/13/24 08:59 Insulin Human Lispro (Insulin Lispro (Admelog) 1 Unit/0.01 Ml Unit) 0 unit SC AC [facility]; Protocol Stop: 11/08/24 16:59 Memantine (Memantine Hcl 5 Mg Tablet) 10 mg PO BID [facility] Stop: 11/08/24 20:59 Ondansetron HCl (Ondansetron Inj 2 Mg/Ml Inj 2 Ml) 4 mg IV Q6H PRN; Protocol PRN Reason: NAUSEA OR VOMITING Stop: 11/08/24 13:13 Oxycodone/Acetaminophen (Oxycodone/Apap 5/325 Tablet) 1 tab PO Q6H PRN PRN Reason: PAIN SCALE 4-10(Mod-Sev Stop: 10/14/24 13:13 Pantoprazole Sodium (Pantoprazole Inj 40 Mg Vial) 40 mg IVP QDAY [facility] Stop: 11/08/24 13:29 Last Admin: 10/09/24 14:37 Dose: 40 mg Sennosides (Senna Tablet) 1 tab PO QDAY PRN; Protocol PRN Reason: constipation Stop: 11/08/24 13:13 Discontinued Medications Acetaminophen (Acetaminophen 325 Mg Tablet) 650 mg PO X1 ONE Stop: 10/09/24 09:59 Last Admin: 10/09/24 10:28 Dose: 650 mg Haloperidol Lactate (Haloperidol Lact Inj 5 Mg/Ml Vial) 5 mg IM X1 ONE Stop: 10/09/24 13:56 Last Admin: 10/09/24 14:02 Dose: 5 mg Azithromycin 500 mg/ Sodium (Chloride) 250 mls @ 250 mls/hr IV X1 ONE Stop: 10/09/24 12:58 Ceftriaxone Sodium 1,000 mg/ (Sodium Chloride) 50 mls @ 100 mls/hr IV X1 ONE Stop: 10/09/24 12:28 Last Admin: 10/09/24 14:37 Dose: 100 mls/hr Lactated Ringer's (Lactated Ringers) 1,000 mls @ 999 mls/hr IV .Q1H1M ONE Stop: 10/09/24 14:14 Last Admin: 10/09/24 14:39 Dose: 999 mls/hr Lactated Ringer's (Lactated Ringers) 500 mls @ 999 mls/hr IV .Q31M ONE Stop: 10/09/24 13:44 Last Admin: 10/09/24 14:50 Dose: 999 mls/hr Magnesium Sulfate (Magnesium Sulfate Ivpb) 2 gm in 50 mls @ 25 mls/hr IV X1 ONE Stop: 10/09/24 15:28 Lidocaine (Lidocaine 5% 1 Patch) 1 patch TOP X1 ONE Stop: 10/09/24 13:37 Assessment & Plan Plan This patient is a 69-year-old male with past medical history of vascular dementia, hypertension, insulin-dependent diabetes, diabetic neuropathy, history of diabetic foot, chronic pain on oxycodone presented on 10/09/2024 with chief complaint of altered mental status/confusion more than usual state per patient's ex- was present at the bedside, complained of frequency, urgency and dysuria with burning sensation, fever/chills, loss of balance and fell at home while getting out of the bed and also during CT imaging code*was called as patient fell on his back, productive cough and decreased appetite x 1 day ago. Admitted for acute encephalopathy and sepsis likely secondary to UTI. #Acute on chronic encephalopathy #Hx of vascular dementia #Recurrent falls ?Patient presented with altered mental status, burning and increased frequency during urination. Patient fell at home and also fell in our hospital during CT imaging. ? Patient takes memantine and donepezil and follows neurologist, as outpatient ?Head CT was negative. Cervical spine CT was negative for fractures. Ammonia was negative. Plan ? Treating underlying infection ? Continued home medications ? Restraints as patient was not compiling with safety and 3 code greys saying that he want to leave hosp ? Haldol given x 1 due to agitation ? Aspiration precautions ? PT evaluation #Sepsis likely secondary to UTI #Hypotension ?Patient presented with altered mental status, burning and increased frequency during urination. Patient fell at home and also fell in our hospital during CT imaging. Patient does have a history of bacteremia in the past. ?Initial vitals showed blood pressure 86/58, heart rate 79, respiratory rate 16 and afebrile. Temperature 101. He was saturating 90% on 4 L NC. Initially patient was hypoxic at 84% on room air. ?UA was turbid with pyuria bacteriuria and squamous cells. -Patient received Tylenol x1 in the ED Plan: ?Continue IV Rocephin 1 g daily ? Continue IV fluids at 100 cc/h ? Patient received 3 L bolus of fluid based on sepsis bolus per KG ? Follow-up on blood cultures and urine cultures ? Follow-up with lactic acid and if patient becomes refractory to IV fluids consider upgrading to ICU requiring pressor ? Follow-up with morning labs ? Replete electrolytes as necessary #Acute hypoxic respiratory failure #Likely secondary to community-acquired pneumonia #History of smoking ?Patient was complaining of shortness of breath, was hypoxic on admission and had productive cough x 1 week ago. ?Initially patient was hypoxic at 84% on room air improved with 4L O2 Plan: ?Continue Rocephin ? Oxygen as needed ? Aspiration precautions ? Follow-up on flu and cocci ?DuoNebs as needed #Lactic acidosis likely type B -Likely hypotension ?Lactic acid 2.6 Plan: ? Treating sepsis and given IV fluids ?Trend lactic acid #NELIDA likely prerenal #Dehydration due to decreased p.o. intake ?BUN 29 creatinine 1.6 with baseline creatinine 0.8 from 07/01/24 Plan, ? Avoid nephrotoxic agents ? Renally dose medications ? Strict THO's ? Follow-up with renal panel #Leukocytosis ?White count 13.9 Plan: ? Treating underlying infection ? Monitor for fever spikes #Normocytic anemia #Iron deficiency anemia ? Hemoglobin 11.6, iron 13 Plan: ? Follow-up with CBC ? PRBC hemoglobin drops below 7 #Hypoglycemia #History of IDDM #History of DKA ? Blood sugars were low at home per patient's . Patient takes insulin 60 units at bedtime and Trulicity at home ? Initial blood sugars were 62 improved to 215 Plan: ? Insulin sliding scale ? Follow-up with A1c ? Hypoglycemia protocol with Accu-Cheks #Elevated transaminases ? AST and ALT were elevated along with ALP. Patient does have history of heart failure. Mildly elevated BNP. Plan: ? Trend LFTs and follow-up with the hep panel ?Follow-up with liver ultrasound #History of HFrEF EF 40% ?Per chart review patient does have a history of HFrEF EF 40% 2019. Plan ? Ordered echocardiogram ? Strict THO's and daily weight Health maintenance Diet: Carb consistent diet once passes nurse swallow screen GI prophylaxis: Protonix 40 mg once daily DVT prophylaxis: Heparin subcut twice daily CODE STATUS: Full code Disp: Admitted for further workup and management of acute encephalopathy and sepsis likely due to UTI. -- Patient was seen and discussed with attending physician, Dr. Ino Beltran MD, PGY 2 Attending Provider Attestation/Addendum I have discussed and was present for the essential components of the history, physical examination, diagnosis, and treatment plan with the resident. I agree with the patient's care as documented by the resident and amended herein by me. Sergey Mckinnon DO. Although this document has been carefully reviewed, there may still be some phonetic and other typographical errors. These errors are purely grammatical due to imperfections in the software program and should not be construed in any way to compromise the substance of the patient's medical care during this visit.
[2024-10-09] MEDS: Magnesium Sulfate 2 GM Ivpb 2 GM/50 ML BAG IV (15:36)
[2024-10-09] MEDS: RINGERS LACTATED 1000 ML 1,000 ML 100 ML IV (16:06)
[2024-10-09 18:15] LABS: Lactate (Lactic Acid) 2.1 mMol/L (0.4-2.0)
[2024-10-09] MEDS: ALBUTEROL/IPRATROPIUM (Duoneb) RT SOL 3 ML NEBU INH (18:46)
[2024-10-09 21:14] LABS: Reflex Lactate? Y
[2024-10-09 21:28] LABS: Amphetamine/Methamp Scrn,U Negative (Negative); Barbiturate Screen,Urine Negative (Negative); Benzodiazepines Screen,Urine Negative (Negative); Benzoylecgonine Screen, Ur Negative (Negative); Fentanyl Screen,Urine Negative (Negative); Opiate Screen,Urine Positive (Negative); THC Screen,Urine Negative (Negative)
[2024-10-09] MEDS: MEMANTINE HCL 5 MG TABLET 10 MG PO (21:30)
[2024-10-09 22:14] LABS: Lactic Acid, 3 HR 1.7 mMol/L (0.4-2.0)
[2024-10-10] VITALS (10 sets, daily range): BP systolic 100–131; BP diastolic 51–78; PULSE 73–90; RESP 12–20; TEMP 36.2–36.8; O2SAT 90–99; BMI 24.1
[2024-10-10] MEDS: ALBUTEROL/IPRATROPIUM (Duoneb) RT SOL 3 ML NEBU INH ×4 (01:26→18:41)
[2024-10-10 06:42] LABS: Basophils % (Auto) 0 % (0-2.5); Eosinophils # (Auto) 0.3 Thou/mm3 (0.0-0.5); Eosinophils % (Auto) 3 % (0-10); Hematocrit 30.3 % (41.0-53.0); Hemoglobin 10.3 g/dL (13.5-16.0); Immature Granulocytes % (Auto) 1 % (0-0); Immature Granulocytes Auto 0.05 Thou/mm3 (0.00-0.00); Lymphocytes # (Auto) 1.2 Thou/mm3 (1.0-4.8); Lymphocytes % (Auto) 12 % (10-50); Mean Corpuscular Hemoglobin 29.9 pg (25.0-35.0); Mean Corpuscular Volume 88 fL (80-100); Monocytes # (Auto) 0.6 Thou/mm3 (0.0-0.8); Monocytes % (Auto) 6 % (0-12); Neutrophils # (Auto) 7.3 Thou/mm3 (1.8-7.7); Neutrophils % (Auto) 78 % (37-80); Nucleated Red Blood Cell % 0 /100 WBC (0); Platelet Count 171 Thou/mm3 (140-440); RDW Standard Deviation 43.6 fL (35.1-43.9); Red Blood Count 3.44 Miln/mm3 (4.50-5.90); White Blood Count 9.5 Thou/mm3 (3.8-10.6)
[2024-10-10 06:57] LABS: INR 1.2 (0.9-1.3)
[2024-10-10 07:06] LABS: Alanine Aminotransferase 96 U/L (10-49); Albumin, Serum 3.3 gm/dL (3.4-4.8); Albumin/Globulin Ratio 1.6 (1.2-2.2); Alkaline Phosphatase 151 U/L (46-116); Anion Gap 5 (7-16); Aspartate Amino Transferase 118 U/L (0-34); BUN/Creatinine Ratio 25 Ratio (12-20); Bilirubin,Total 0.5 mg/dL (0.3-1.2); Blood Urea Nitrogen 28 mg/dL (9-23); Calcium 8.8 mg/dL (8.3-10.6); Calcium (Corrected) 9.4 mg/dL (8.5-10.1); Carbon Dioxide 30.4 mMol/L (20.0-31.0); Cardiac Risk Estimate 2.3 RATIO (4.0-6.7); Chloride 104 mMol/L (98-107); Cholesterol 111 mg/dL (132-200); Creatinine (Component) 1.1 mg/dL (0.6-1.3); Estimated Creatinine Clearance 73.6 mL/min (>60); Ferritin 255 ng/mL (10.5-307.3); Globulin 2.1 gm/dL (2.3-3.5); Glucose 166 mg/dL (74-106); HDL Cholesterol 48 mg/dL (40-60); LDL Cholesterol,Calculated 48 mg/dL (0-130); Magnesium 2.1 mg/dL (1.6-2.6); Osmolality,Calculated 287 (275-295); Phosphorous 2.4 mg/dL (2.4-5.1); Potassium 4.6 mMol/L (3.4-5.1); Sodium 139 mMol/L (136-145); Thyroid Stimulating Hormone 0.61 uIU/mL (0.55-4.78); Total Protein 5.4 gm/dL (5.7-8.2); Triglycerides 77 mg/dL (30-150); eGFR > 60 See Note
[2024-10-10 07:12] LABS: Glucose Estimated Average 243 mg/dL (80-131); Hemoglobin A1C 10.1 % Hgb (4.8-6.0)
[2024-10-10] MEDS: INSULIN LISPRO (AdmeLOG) 1 UNIT/0.01 ML UNIT SC ×3 (07:45→20:30)
[2024-10-10] MEDS: cefTRIAXone 1,000 MG in SODIUM CHLORIDE 0.9% (Popper) 50 ML 100 MG IV (09:23)
[2024-10-10] MEDS: PANTOPRAZOLE INJ 40 MG VIAL IVP (09:24)
[2024-10-10] MEDS: HEPARIN SOD INJ 5000 UNIT/ML VIAL SC ×2 (09:24→20:32)
[2024-10-10] MEDS: MEMANTINE HCL 5 MG TABLET 10 MG PO ×2 (09:24→20:30)
[2024-10-10] MEDS: AZITHROMYCIN INJ 500 MG in SODIUM CHLORIDE 0.9% 250 ML 250 ML 250 MG IV (10:16)
--- NOTE | 2024-10-10 12:46 | ESPR_ITS ---
Documentation for date of: 10/10/24 Subjective Subjective Interval history: Patient seen and examined at bedside this morning. No acute overnight events. Vitals, labs reviewed. Patient remains on 3 L nasal cannula, with remainder VS within normal limits. Labs significant for mild anemia and improved creatinine. LFTs downtrending, LA resolved and A1c noted to be 10.1. Blood and urine cultures are pending. Cocci, hepatitis panel and echo are pending. Patient is at his baseline mentation and is currently complaining of a cough, with occasional yellow/white mucus. Exam Vital Signs Temp Pulse Resp BP Pulse Ox O2 Del Method O2 Flow Rate 97.8 F 80 19 118/62 98 Oxy Mask 10 10/10/24 08:00 10/10/24 08:00 10/10/24 08:00 10/10/24 08:00 10/10/24 08:00 10/10/24 08:00 10/10/24 08:00 Narrative Exam Gen: AAOx3, resting comfortably, pleasant to speak with, answers questions appropriately HEENT: NCAT, PERRLA, EOMI, MMM, no LAD, remains on nasal cannula CVS: normal S1, S2. RRR. No MRG Resp: Occasional rhonchi and wheeze Abd: soft, non-tender, non-distended. BS+ in all 4 quadrants. CVA tenderness improved MSK: Good ROM in BUE & BLE. No edema or rash. Neuro: CN II-XII grossly intact. No focal deficits appreciated. Mentation at baseline Objective Labs 10/10/24 06:22 10/10/24 06:22 Labs: Laboratory Results - last 24 hr 10/09/24 10/09/24 10/09/24 10:40 12:06 14:26 WBC RBC Hgb Hct MCV MCH MCHC RDW Std Deviation Plt Count Neut % (Auto) Lymph % (Auto) [place] % (Auto) Eos % (Auto) Baso % (Auto) Neut # (Auto) Lymph # (Auto) [place] # (Auto) Eos # (Auto) Baso # (Auto) Immature Gran # (Auto) Absolute Nucleated RBC Immature Gran % Nucleated RBC % PT INR APTT Sodium Potassium Chloride Carbon Dioxide Anion Gap BUN Creatinine Estim Creat Clear Calc eGFR BUN/Creatinine Ratio Glucose Estimated Ave Glu mg/dL Hemoglobin A1c Calculated Osmolality Lactic Acid 2.6 H Calcium Corrected Calcium Phosphorus Magnesium Iron 13 L TIBC 319 Iron Saturation 4 L Unsat Iron Binding 306 H Ferritin Total Bilirubin AST ALT Alkaline Phosphatase Ammonia < 10 L Total Protein Albumin Globulin Albumin/Globulin Ratio Triglycerides Cholesterol LDL Cholesterol, Calc HDL Cholesterol Cholesterol/HDL Ratio TSH Urine Opiates Screen Positive A Urine Fentanyl Screen Negative Ur Barbiturates Screen Negative U Amphetamin/Meth Scrn Negative U Benzodiazepines Scrn Negative U Cocaine Metab Screen Negative U Marijuana (THC) Screen Negative Ethyl Alcohol < 3.0 10/09/24 10/09/24 10/10/24 18:11 22:02 06:22 WBC 9.5 RBC 3.44 L Hgb 10.3 L Hct 30.3 L MCV 88 MCH 29.9 MCHC 34.0 RDW Std Deviation 43.6 Plt Count 171 D Neut % (Auto) 78 Lymph % (Auto) 12 [place] % (Auto) 6 Eos % (Auto) 3 Baso % (Auto) 0 Neut # (Auto) 7.3 Lymph # (Auto) 1.2 [place] # (Auto) 0.6 Eos # (Auto) 0.3 Baso # (Auto) 0.0 Immature Gran # (Auto) 0.05 H Absolute Nucleated RBC 0.00 Immature Gran % 1 H Nucleated RBC % 0 PT 13.0 H INR 1.2 APTT 37.0 H Sodium 139 Potassium 4.6 Chloride 104 Carbon Dioxide 30.4 Anion Gap 5 L BUN 28 H Creatinine 1.1 D Estim Creat Clear Calc 73.6 eGFR > 60 BUN/Creatinine Ratio 25 H Glucose [address] Glu mg/dL 243 H Hemoglobin A1c 10.1 H Calculated Osmolality 287 Lactic Acid 2.1 H 1.7 Calcium 8.8 Corrected Calcium 9.4 Phosphorus 2.4 Magnesium 2.1 Iron TIBC Iron Saturation Unsat Iron Binding Ferritin 255 Total Bilirubin 0.5 AST 118 H ALT 96 H Alkaline Phosphatase 151 H D Ammonia Total Protein 5.4 L Albumin 3.3 L D Globulin 2.1 L Albumin/Globulin Ratio 1.6 Triglycerides 77 Cholesterol 111 L LDL Cholesterol, Calc 48 HDL Cholesterol 48 Cholesterol/HDL Ratio 2.3 L TSH 0.61 Urine Opiates Screen Urine Fentanyl Screen Ur Barbiturates Screen U Amphetamin/Meth Scrn U Benzodiazepines Scrn U Cocaine Metab Screen U Marijuana (THC) Screen Ethyl Alcohol Quality Measures Quality Measures VTE prophylaxis (Heparin subcut) Advance care planning discussed with:: patient Assessment & Plan Assessment Current Active Medications: Generic Name Dose Route Start Last Admin Trade Name Renay PRN Reason Stop Dose Admin Acetaminophen 650 mg 10/09/24 13:14 Acetaminophen 325 Mg Tablet PO 11/08/24 13:13 Q6H PRN Fever >101.5 Acetaminophen 650 mg 10/09/24 13:14 Acetaminophen 325 Mg Tablet PO 11/08/24 13:13 Q6H PRN PAIN SCALE 1-3 (mild Albuterol/Ipratropium 3 ml 10/09/24 19:00 10/10/24 07:57 Albuterol/Ipratropium (Duoneb) Rt Randi 3 Ml Nebu INH 11/08/24 18:59 3 ml Q6HRRT YOSEF Administration Benzonatate 200 mg 10/09/24 13:19 Benzonatate 100 Mg Capsule PO 11/08/24 13:18 Q8HR PRN COUGH Protocol Dextrose 25 ml 10/09/24 13:14 Dextrose 50%-Water Inj 50 Ml Syringe IV 11/08/24 13:13 Q15MIN PRN BG 50-70 responsive npo pt Dextrose 50 ml 10/09/24 13:14 Dextrose 50%-Water Inj 50 Ml Syringe IV 11/08/24 13:13 Q15MIN PRN BG <50 OR BG <70 & pt unresponsive Donepezil HCl 10 mg 10/10/24 21:00 Donepezil Hcl 5 Mg Tablet PO 11/09/24 20:59 HS YOSEF Glucagon 1 mg 10/09/24 13:14 Glucagon Inj 1 Mg Vial IM Q15MIN PRN BG <70, and no IV access Heparin Sodium (Porcine) 5,000 unit 10/09/24 13:30 10/10/24 09:24 Heparin Sod Inj 5000 Unit/Ml Vial SC 10/23/24 13:29 5,000 unit BID YOSEF Administration Ceftriaxone Sodium 1,000 mg/ 50 mls @ 100 mls/hr 10/10/24 09:00 10/10/24 09:23 Sodium Chloride IV 10/17/24 08:59 100 mls/hr QDAY YOSEF Administration Azithromycin 500 mg/ Sodium 250 mls @ 250 mls/hr 10/10/24 09:00 10/10/24 10:16 Chloride IV 10/13/24 08:59 250 mls/hr QDAY YOSEF Administration Insulin Human Lispro 0 unit 10/09/24 17:00 10/10/24 12:07 Insulin Lispro (Admelog) 1 Unit/0.01 Ml Unit SC 11/08/24 16:59 3 unit AC YOSEF Administration Protocol Memantine 10 mg 10/09/24 21:00 10/10/24 09:24 Memantine Hcl 5 Mg Tablet PO 11/08/24 20:59 10 mg BID YOSEF Administration Ondansetron HCl 4 mg 10/09/24 13:14 Ondansetron Inj 2 Mg/Ml Inj 2 Ml IV 11/08/24 13:13 Q6H PRN NAUSEA OR VOMITING Protocol Oxycodone/Acetaminophen 1 tab 10/09/24 13:14 Oxycodone/Apap 5/325 Tablet PO 10/14/24 13:13 Q6H PRN PAIN SCALE 4-10(Mod-Sev Pantoprazole Sodium 40 mg 10/09/24 13:30 10/10/24 09:24 Pantoprazole Inj 40 Mg Vial IVP 11/08/24 13:29 40 mg QDAY YOSEF Administration Sennosides 1 tab 10/09/24 13:14 Senna Tablet PO 11/08/24 13:13 QDAY PRN constipation Protocol Plan Patient is a 69-year-old male with history of vascular dementia, HTN, IDDM, diabetic neuropathy, history of diabetic foot, chronic pain on oxycodone who presented on 10/09/2024 with acute on chronic encephalopathy, per patient's ex- . Patient endorsed UTI symptoms, fever, and GLF. Patient was admitted for acute on chronic encephalopathy in the setting of sepsis secondary to UTI. #Acute on chronic encephalopathy, improved #Chronic encephalopathy, likely secondary to #Vascular dementia Acute component improved, likely secondary to sepsis/UTI (see below) Patient's home donepezil & memantine were resumed Currently at baseline mentation TSH WNL, B12 pending #Sepsis, resolved, secondary to #UTI #GLF #Leukocytosis, resolved #Hypotension, resolved #Lactic acidosis, resolved Patient presented with acute on chronic encephalopathy, worse from baseline, per patient's ex- will be he lives with. Had a fall at home and while in the ED. Head CT, C-spine CT, and forearm x-ray were negative. Patient endorsed UTI symptoms, as well as productive cough. Met 4/4 SIRS criteria in ED, with lactic acidosis and endorgan damage (NELIDA, AHRF, transaminitis). UA consistent with UTI, with possible contamination Blood and urine cultures pending Received IV fluids per sepsis protocol IV rocephin #Acute hypoxic respiratory failure #Former smoker #Possible aspiration pneumonitis versus pneumonia SaO2 84% RA --> improved with supplemental O2; will wean as tolerated Possible aspiration event when patient was encephalopathic Aspiration precautions Cocci IgM negative, IgG pending On Rocephin and azithromycin Scheduled DuoNebs, as needed Tessalon #NELIDA, improved Creatinine 1.6 on presentation, improved to 1.1 => baseline appears to be 0.8 Likely prerenal in setting of sepsis #Transaminitis, improving #Cholelithiasis LFTs (354, 173 on admission), downtrending Hepatitis panel pending Abd US: Cholelithiasis without cholecystitis, hepatomegaly/fatty liver/primary hepatocellular disease #History of HFrEF Chart review shows EF 40% in 2019 BNP 177; mild vascular congestion noted on imaging Echo ordered Strict I's and O's Caution with IV fluids #IDDM #Hypoglycemia, resolved BG 62 on admission A1c 10.1% FBG 166 => if >180, will start Lantus at bedtime SSI, hypoglycemia protocol in place #Iron deficiency anemia Hgb 10.3, MCV 88 Iron panel consistent with iron deficiency anemia Patient can start iron sulfate with PCP outpatient #Chronic pain Resumed home oxycodone Dispo: Patient admitted for sepsis from UTI, acute encephalopathy has improved; continue IV antibiotics; pending cultures, echo GI PPx: Protonix DVT PPx: Heparin Diet: Low carb consistent, cardiac CODE STATUS: Full code Patient seen and care discussed with my attending Dr. Mckinnon. Luis Presley MD PGY-3 Attending Provider Attestation/Addendum I have discussed and was present for the essential components of the history, physical examination, diagnosis, and treatment plan with the resident. I agree with the patient's care as documented by the resident and amended herein by me. Sergey Mckinnon DO. Although this document has been carefully reviewed, there may still be some phonetic and other typographical errors. These errors are purely grammatical due to imperfections in the software program and should not be construed in any way to compromise the substance of the patient's medical care during this visit.
[2024-10-10 15:06] LABS: Cocci Serology, IgM Negative (Negative)
--- NOTE | 2024-10-10 15:18 | PC.SS ---
Darion Abebe is 69 year old male admitted to [facility] for Sepsis, UTI, PNA, AMS. SS conducted bedside contact with the patient to complete initial assessment and to discuss discharge planning.? SW used all precautionary measures to complete initial. Role and reason for the contact was explained to Darion. Pt is alert and oriented times 4. Patient confirmed demographic information confirming information correct on facesheet. Pt lives with Irish, identified as ex-. [facility] as his surrogate decision maker. Pt states he is independent and does not need assistance with ADLs. Pt has walker and wheelchair; pt does not have O2. Pt states he does not have history of mental health or substance history. Pts was unable to identify PCP. [facility] [address] [place]. Discharge options discussed and the pt will return home. Pt is open to receiving HH; Pt does not want to go to SNF. Pt stated no diabetes; pt stated no dialysis services. No further intervention required at this time, social sciences department chair would be available to address any further concerns. DC Plan: Home Contact: Irish don Flynn, Address: Confirmed on face sheet PCP: Pt unsure
[2024-10-10] MEDS: INSULIN LISPRO (AdmeLOG) 1 UNIT/0.01 ML UNIT 10 UNIT SC (17:19)
[2024-10-10] MEDS: INSULIN GLARGINE (Lantus) 5 UNIT/0.05 ML (PER 5 UNITS) 10 UNIT SC (20:29)
[2024-10-10] MEDS: DONEPEZIL HCL 5 MG TABLET 10 MG PO (20:31)
[2024-10-10 21:53] LABS: Vitamin B12 386 pg/mL (211-911)
[2024-10-10 22:27] LABS: Hepatitis A Antibody IgM Non Reactive (Non React); Hepatitis B Core Antibody IgM Non Reactive (Non React); Hepatitis B Surface Antigen Non Reactive (Non React); Hepatitis C Antibody Reactive (Non React)
--- NOTE | 2024-10-10 22:43 | EKG_ITS ---
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
[2024-10-11] VITALS (11 sets, daily range): BP systolic 126–160; BP diastolic 68–94; PULSE 68–88; RESP 15–94; TEMP 36.1–37.8; O2SAT 92–99
[2024-10-11] MEDS: ALBUTEROL/IPRATROPIUM (Duoneb) RT SOL 3 ML NEBU INH ×4 (00:19→18:09)
[2024-10-11 06:19] LABS: Basophils % (Auto) 0 % (0-2.5); Eosinophils # (Auto) 0.1 Thou/mm3 (0.0-0.5); Eosinophils % (Auto) 2 % (0-10); Hematocrit 30.4 % (41.0-53.0); Hemoglobin 10.2 g/dL (13.5-16.0); Immature Granulocytes % (Auto) 0 % (0-0); Immature Granulocytes Auto 0.03 Thou/mm3 (0.00-0.00); Lymphocytes # (Auto) 0.8 Thou/mm3 (1.0-4.8); Lymphocytes % (Auto) 10 % (10-50); Mean Corpuscular HGB Conc 33.6 g/dl (31.0-37.0); Mean Corpuscular Hemoglobin 29.8 pg (25.0-35.0); Mean Corpuscular Volume 89 fL (80-100); Monocytes # (Auto) 0.5 Thou/mm3 (0.0-0.8); Monocytes % (Auto) 6 % (0-12); Neutrophils # (Auto) 6.3 Thou/mm3 (1.8-7.7); Neutrophils % (Auto) 81 % (37-80); Nucleated Red Blood Cell % 0 /100 WBC (0); Platelet Count 169 Thou/mm3 (140-440); RDW Standard Deviation 43.1 fL (35.1-43.9); Red Blood Count 3.42 Miln/mm3 (4.50-5.90); White Blood Count 7.8 Thou/mm3 (3.8-10.6)
[2024-10-11 06:46] LABS: Alanine Aminotransferase 73 U/L (10-49); Albumin, Serum 3.6 gm/dL (3.4-4.8); Albumin/Globulin Ratio 1.4 (1.2-2.2); Alkaline Phosphatase 149 U/L (46-116); Anion Gap 9 (7-16); Aspartate Amino Transferase 47 U/L (0-34); BUN/Creatinine Ratio 20 Ratio (12-20); Bilirubin,Total 0.6 mg/dL (0.3-1.2); Blood Urea Nitrogen 16 mg/dL (9-23); Calcium 9.8 mg/dL (8.3-10.6); Calcium (Corrected) 10.1 mg/dL (8.5-10.1); Carbon Dioxide 25.9 mMol/L (20.0-31.0); Chloride 106 mMol/L (98-107); Creatinine (Component) 0.8 mg/dL (0.6-1.3); Estimated Creatinine Clearance 101.2 mL/min (>60); Globulin 2.5 gm/dL (2.3-3.5); Glucose 307 mg/dL (74-106); Osmolality,Calculated 294 (275-295); Phosphorous 2.3 mg/dL (2.4-5.1); Potassium 4.6 mMol/L (3.4-5.1); Sodium 141 mMol/L (136-145); Total Protein 6.1 gm/dL (5.7-8.2); eGFR > 60 See Note
[2024-10-11] MEDS: HEPARIN SOD INJ 5000 UNIT/ML VIAL SC ×2 (08:13→20:10)
[2024-10-11] MEDS: PANTOPRAZOLE INJ 40 MG VIAL IVP (08:13)
[2024-10-11] MEDS: cefTRIAXone 1,000 MG in SODIUM CHLORIDE 0.9% (Popper) 50 ML 100 MG IV (08:14)
[2024-10-11] MEDS: MEMANTINE HCL 5 MG TABLET 10 MG PO ×2 (08:14→20:10)
[2024-10-11] MEDS: NAPH,KPH MBDB 1 PACKET (1.5 GM) PO (08:14)
[2024-10-11] MEDS: INSULIN LISPRO (AdmeLOG) 1 UNIT/0.01 ML UNIT 3 UNIT SC ×2 (08:15→12:18)
[2024-10-11] MEDS: INSULIN LISPRO (AdmeLOG) 1 UNIT/0.01 ML UNIT SC ×3 (08:17→20:11)
[2024-10-11] MEDS: AZITHROMYCIN INJ 500 MG in SODIUM CHLORIDE 0.9% 250 ML 250 ML 250 MG IV (08:58)
--- NOTE | 2024-10-11 09:22 | PC.SS ---
SCIENTIFIC INFORMATICS ANALYST conducted phone contact with patient's ex-spouse, Irish Flynn . Ex spouse is the patient's surrogate decision maker. Due to patient's decrease in strength ex-spouse requesting SNF placement upon discharge for the patient. Due to patient's weakened condition patient's ex-spouse communicated inability to care for patient. No preferred SNF identified.
[2024-10-11] MEDS: INSULIN GLARGINE (Lantus) 5 UNIT/0.05 ML (PER 5 UNITS) 8 UNIT SC (11:05)
[2024-10-11 12:38] LABS: Cocci Serology, IgG Negative (Negative)
--- NOTE | 2024-10-11 13:30 | ESPR_ITS ---
<Statement entered by Gregory Beltran MD - 10/11/24 20:51> Patient was seen and examined at the bedside. Patient was doing well and was wondering what what time he will be discharged. No acute overnight events were reported. Patient is currently on ceftriaxone for UTI. Currently awaiting urine cultures. PT recommended SNF placement. Will likely follow-up with urine cultures. Echocardiogram was showing EF 55 to 60%. Blood sugars were elevated therefore insulin dose was adjusted. Patient was found positive for hepatitis C therefore will need to follow outpatient with the PCP for viral load. All labs and orders were reviewed. I saw and examined the patient, and I agree with current management stated by Dr Tg MD,PGY1. Plan of care was discussed with the attending physician and resident physician. Disclaimer: Despite multiple revisions, due to the dictation software being used, the document bellow may not be free of grammatical errors including phonetic/typographic errors. However, this does not deter from our commitment to providing health care in the patient's best interest in mind. Dr. Tammi MD, PGY 2 Documentation for date of: 10/11/24 Subjective Subjective Interval history: Darion Abebe is a 69-y/o male with a PMHx vascular dementia, HTN, IDDM, diabetic neuropathy, history of diabetic foot, chronic pain on oxycodone who presented on 10/09 with acute on chronic encephalopathy, per patient's ex-. Patient endorsed UTI symptoms, fever, and GLF. Patient was admitted for acute on chronic encephalopathy in the setting of sepsis secondary to UTI. 10/10: Seen and examined at bedside this morning. No acute overnight events. Vitals, labs reviewed. Remains on 3 L nasal cannula with remainder VS within normal limits. Labs significant for mild anemia and improved creatinine. LFTs downtrending, LA resolved and A1c noted to be 10.1. Blood and urine cultures are pending. Cocci, hepatitis panel and echo are pending. At his baseline mentation and is currently complaining of a cough, with occasional yellow/white mucus. 10/11: Seen and examined at bedside. No acute overnight events. Continues to be on 2 L nasal cannula saturating 95%. WBC continuing to downtrend, hemoglobin stable, and LFTs downtrending. However, glucose noted to be 405 last night and on fasting a.m. labs glucose of 307. Glargine increased from 10 to 18 units and on 3 units lispro 3 times daily with meals. Given an additional 5 units of lispro for blood sugar of 317 before lunch. Cocci IgG and IgM negative, hepatitis panel significant for positive HCV antibody. Will instruct patient to follow-up outpatient. Otherwise, patient does not have any complaints and continues to be at baseline mentation. Exam Vital Signs Temp Pulse Resp BP Pulse Ox O2 Del Method O2 Flow Rate 97.9 F 84 18 146/75 H 95 Nasal Cannula 2 10/11/24 08:00 10/11/24 12:38 10/11/24 12:38 10/11/24 08:00 10/11/24 12:38 10/11/24 08:00 10/11/24 08:00 Narrative Exam General: AOx3, resting comfortably in bed, pleasant, able to speak full sentences HEENT: On 2 L nasal cannula, NC/AT, mucous membranes moist, bilateral sclera anicteric Cardiovascular: regular rate and rhythm, S1/S2 present, no murmurs appreciated Pulmonary: clear to auscultation bilaterally, no rales/rhonchi/wheezes Abdominal: soft, non-tender, non-distended, no rebound/guarding, normal bowel sounds present Musculoskeletal: normal ROM, no peripheral edema Skin: warm and dry, intact, no rashes Neuro: CN II-XII intact, no focal deficits Objective Labs 10/12/24 05:12 10/12/24 05:12 Labs: Laboratory Results - last 24 hr 10/09/24 10/09/24 10/11/24 12:06 14:26 05:18 WBC 7.8 RBC 3.42 L Hgb 10.2 L Hct 30.4 L MCV 89 MCH 29.8 MCHC 33.6 RDW Std Deviation 43.1 Plt Count 169 Neut % (Auto) 81 H Lymph % (Auto) 10 [place] % (Auto) 6 Eos % (Auto) 2 Baso % (Auto) 0 Neut # (Auto) 6.3 Lymph # (Auto) 0.8 L [place] # (Auto) 0.5 Eos # (Auto) 0.1 Baso # (Auto) 0.0 Immature Gran # (Auto) 0.03 H Absolute Nucleated RBC 0.00 Immature Gran % 0 Nucleated RBC % 0 Sodium 141 Potassium 4.6 Chloride 106 Carbon Dioxide 25.9 Anion Gap 9 BUN 16 Creatinine 0.8 Estim Creat Clear Calc 101.2 eGFR > 60 BUN/Creatinine Ratio 20 Glucose 307 H D Calculated Osmolality 294 Calcium 9.8 Corrected Calcium 10.1 Phosphorus 2.3 L Magnesium 2.0 Total Bilirubin 0.6 AST 47 H ALT 73 H Alkaline Phosphatase 149 H Total Protein 6.1 Albumin 3.6 Globulin 2.5 Albumin/Globulin Ratio 1.4 Vitamin B12 386 Coccidioides IgG Ab Negative Coccidioides IgM Ab Negative Hepatitis A IgM Ab Non Reactive Hep Bs Antigen Non Reactive Hep B Core IgM Ab Non Reactive Hepatitis C Antibody Reactive A Quality Measures Quality Measures VTE prophylaxis (Heparin subcut) Advance care planning discussed with:: other Assessment & Plan Assessment Current Active Medications: Generic Name Dose Route Start Last Admin Trade Name Freq PRN Reason Stop Dose Admin Acetaminophen 650 mg 10/09/24 13:14 Acetaminophen 325 Mg Tablet PO 11/08/24 13:13 Q6H PRN Fever >101.5 Acetaminophen 650 mg 10/09/24 13:14 Acetaminophen 325 Mg Tablet PO 11/08/24 13:13 Q6H PRN PAIN SCALE 1-3 (mild Albuterol/Ipratropium 3 ml 10/09/24 19:00 10/11/24 12:37 Albuterol/Ipratropium (Duoneb) Rt Randi 3 Ml Nebu INH 11/08/24 18:59 3 ml Q6HRRT YOSEF Administration Benzonatate 200 mg 10/09/24 13:19 Benzonatate 100 Mg Capsule PO 11/08/24 13:18 Q8HR PRN COUGH Protocol Dextrose 25 ml 10/09/24 13:14 Dextrose 50%-Water Inj 50 Ml Syringe IV 11/08/24 13:13 Q15MIN PRN BG 50-70 responsive npo pt Dextrose 50 ml 10/09/24 13:14 Dextrose 50%-Water Inj 50 Ml Syringe IV 11/08/24 13:13 Q15MIN PRN BG <50 OR BG <70 & pt unresponsive Donepezil HCl 10 mg 10/10/24 21:00 10/10/24 20:31 Donepezil Hcl 5 Mg Tablet PO 11/09/24 20:59 10 mg HS YOSEF Administration Glucagon 1 mg 10/09/24 13:14 Glucagon Inj 1 Mg Vial IM Q15MIN PRN BG <70, and no IV access Heparin Sodium (Porcine) 5,000 unit 10/09/24 13:30 10/11/24 08:13 Heparin Sod Inj 5000 Unit/Ml Vial SC 10/23/24 13:29 5,000 unit BID YOSEF Administration Ceftriaxone Sodium 1,000 mg/ 50 mls @ 100 mls/hr 10/10/24 09:00 10/11/24 08:14 Sodium Chloride IV 10/17/24 08:59 100 mls/hr QDAY YOSEF Administration Azithromycin 500 mg/ Sodium 250 mls @ 250 mls/hr 10/10/24 09:00 10/11/24 08:58 Chloride IV 10/13/24 08:59 250 mls/hr QDAY YOSEF Administration Insulin Glargine 18 unit 10/12/24 21:00 Insulin Glargine (Lantus) 5 Unit/0.05 Ml (Per 5 Units) SC 11/11/24 20:59 HS YOSEF Insulin Human Lispro 0 unit 10/10/24 20:15 10/11/24 12:18 Insulin Lispro (Admelog) 1 Unit/0.01 Ml Unit SC 11/09/24 20:14 6 unit ACHS YOSEF Administration Protocol Insulin Human Lispro 3 unit 10/11/24 08:00 10/11/24 12:18 Insulin Lispro (Admelog) 1 Unit/0.01 Ml Unit SC 11/10/24 07:59 3 unit TIDWM YOSEF Administration Memantine 10 mg 10/09/24 21:00 10/11/24 08:14 Memantine Hcl 5 Mg Tablet PO 11/08/24 20:59 10 mg BID YOSEF Administration Ondansetron HCl 4 mg 10/09/24 13:14 Ondansetron Inj 2 Mg/Ml Inj 2 Ml IV 11/08/24 13:13 Q6H PRN NAUSEA OR VOMITING Protocol Oxycodone/Acetaminophen 1 tab 10/09/24 13:14 Oxycodone/Apap 5/325 Tablet PO 10/14/24 13:13 Q6H PRN PAIN SCALE 4-10(Mod-Sev Pantoprazole Sodium 40 mg 10/09/24 13:30 10/11/24 08:13 Pantoprazole Inj 40 Mg Vial IVP 11/08/24 13:29 40 mg QDAY YOSEF Administration Sennosides 1 tab 10/09/24 13:14 Senna Tablet PO 11/08/24 13:13 QDAY PRN constipation Protocol Plan Darion Abebe is a 69-y/o male with a PMHx vascular dementia, HTN, IDDM, diabetic neuropathy, history of diabetic foot, chronic pain on oxycodone who presented on 10/09 with acute on chronic encephalopathy, per patient's ex-. Patient endorsed UTI symptoms, fever, and GLF. Patient was admitted for acute on chronic encephalopathy in the setting of sepsis secondary to UTI. #Acute on chronic encephalopathy, improved #Chronic encephalopathy, likely secondary to #Vascular dementia Acute component improved, likely secondary to sepsis/UTI (see below). Currently at baseline mentation. TSH WNL, ammonia WNL, B12 WNL. ? Continue home donezepil 10 mg p.o. at bedtime and memantine 10 mg p.o. twice daily #Sepsis, resolved, secondary to #UTI #GLF #Leukocytosis, resolved #Hypotension, resolved #Lactic acidosis, resolved Presented with acute on chronic encephalopathy, worse from baseline, per patient's ex- who he lives with. Had a fall at home and while in the ED. Head CT, C-spine CT, and forearm x-ray were negative. Endorsed UTI symptoms, as well as productive cough. UA consistent with UTI, with possible contamination. Met 4/4 SIRS criteria in ED, with lactic acidosis and end organ damage (NELIDA, AHRF, transaminitis). ? Ceftriaxone 1 g IV daily (10/10-) ? Blood culture on 10/09: NGTD ? Urine culture on 10/09: NGTD #Acute hypoxic respiratory failure #Former smoker #Possible aspiration pneumonitis versus pneumonia SaO2 84% RA --> improved with supplemental O2; will wean as tolerated Possible aspiration event when patient was encephalopathic Cocci IgM and IgG negative. ? Azithromycin 500 mg IV daily (10/10-) ? Ceftriaxone as above ? DuoNebs every 6 hours scheduled ? Tessalon Perles as needed ? Aspiration precautions #NELIDA, resolved Creatinine 1.6 on presentation, improved to 1.1 => baseline appears to be 0.8 Likely prerenal in setting of sepsis #Transaminitis, improving #Cholelithiasis LFTs (354, 173 on admission), downtrending Abd US: Cholelithiasis without cholecystitis, hepatomegaly/fatty liver/primary hepatocellular disease. Hepatitis panel significant for positive HCV antibody, HBV and HCV negative. ? Follow-up outpatient to obtain HCV RNA titers #History of HFrEF Chart review shows EF 40% in 2019 BNP 177; mild vascular congestion noted on imaging Echo 10/11: Normal LV size and function. EF 60%, mild MR, AV sclerosis but no stenosis, mild TR. ? Strict I's and O's ? Caution with IVF #IDDM #Hypoglycemia, resolved A1c 10.1%. BG 62 on admission but has peaked at 405. ? Glargine 18 units ? Lispro 3 units 3 times daily with meals ? SSI, step 3 ACHS ? Hypoglycemia protocol in place #Iron deficiency anemia Hgb 10.3, MCV 88 Iron panel consistent with iron deficiency anemia ? Can start iron sulfate with PCP outpatient #Chronic pain ? Resumed home oxycodone Hospital management: Dispo: admitted for sepsis from UTI, acute encephalopathy has improved; continue IV antibiotics; pending cultures and blood sugar control GI PPx: Protonix DVT PPx: Heparin Diet: Low carb consistent, cardiac CODE STATUS: Full code ----- Plan discussed with attending physician Dr. Mckinnon and senior resident physician Dr. Tammi Mas MD PGY-1 Internal Medicine Attending Provider Attestation/Addendum I have discussed and was present for the essential components of the history, physical examination, diagnosis, and treatment plan with the resident. I agree with the patient's care as documented by the resident and amended herein by me. Sergey Mckinnon, DO. Although this document has been carefully reviewed, there may still be some phonetic and other typographical errors. These errors are purely grammatical due to imperfections in the software program and should not be construed in any way to compromise the substance of the patient's medical care during this visit.
[2024-10-11] MEDS: INSULIN LISPRO (AdmeLOG) 1 UNIT/0.01 ML UNIT 5 UNIT SC (14:27)
--- NOTE | 2024-10-11 15:04 | PC.SS ---
OPAL POLISHER conducted bedside contact with the patient to discuss SNF placement at the time of discharge. OPAL POLISHER relayed to the patient concerns's ex-spouse expressed regarding patient's level of weakness and inability to provide care to patient with current condition. Patient acknowledged plan to d/c to SNF. No preferred SNF identified. OPAL POLISHER to submit referral on [facility] platform.
[2024-10-11] MEDS: oxyCODONE/APAP 5/325 TABLET 1 TAB PO (15:16)
--- NOTE | 2024-10-11 16:12 | ECHO_ITS ---
Transthoracic Echo Report Ht (in): 75 Wt (lb): 191 Exam Location: Echo Lab Status: Inpatient Manager Brand: VANESSA Arenas^^^^ Indications: Procedure Performed: BP: 131 / 71 HR: 95 Rhythm: Sinus Technical Quality: Fair MEASUREMENTS (Male / Female) Normal Values 2D ECHO LV Diastolic Diameter PLAX 3.6 cm 4.2 - 5.9 / 3.9 - 5.3 cm LV Systolic Diameter PLAX 2.5 cm IVS Diastolic Thickness 0.9 cm 0.6 - 1.0 / 0.6 - 0.9 cm LVPW Diastolic Thickness 1.0 cm 0.6 - 1.0 / 0.6 - 0.9 cm LV Relative Wall Thickness 0.5 LVOT Diameter 1.7 cm Aortic Root Diameter 3.5 cm LA Systolic Diameter LX 3.6 cm 3.0 - 4.0 / 2.7 - 3.8 cm LV Ejection Fraction MOD 4C 66.3 % LV Cardiac Index MOD 4C 3499.3 cm?/min?m? LV Ejection Fraction 4C AL 68.0 % LV Cardiac Index 4C AL 3758.1 cm?/min?m? LV Ejection Fraction MOD 2C 79.2 % LV Cardiac Index MOD 2C 6710.4 cm?/min?m? LV Ejection Fraction 2C AL 80.1 % LV Cardiac Index 2C AL 6852.6 cm?/min?m? LA Volume Index 27.3 cm?/m? 16 - 28 cm?/m? Ascending Aorta Diameter 2.8 cm DOPPLER AV Peak Velocity 177.3 cm/s AV Peak Gradient 12.6 mmHg AV Mean Gradient 8.0 mmHg AV Velocity Time Integral 35.2 cm AI Peak Velocity 282.0 cm/s AI Peak Gradient 31.8 mmHg AI Pressure Half Time 525.0 ms LVOT Peak Velocity 99.8 cm/s LVOT Peak Gradient 4.0 mmHg LVOT Velocity Time Integral 24.8 cm LVOT Cardiac Index 2496.6 cm?/min?m? AV Area Cont Eq vti 1.6 cm? AV Area Cont Eq pk 1.3 cm? MV Area PHT 3.5 cm? MR Peak Velocity 600.5 cm/s MR Peak Gradient 144.2 mmHg Mitral E Point Velocity 74.2 cm/s Mitral A Point Velocity 111.0 cm/s Mitral E to A Ratio 0.7 TR Peak Velocity 269.3 cm/s TR Peak Gradient 29.0 mmHg PV Peak Velocity 131.0 cm/s PV Peak Gradient 6.9 mmHg RVOT Peak Velocity 96.8 cm/s FINDINGS Left Ventricle Normal left ventricular size, wall thickness, systolic function with no obvious regional wall motion abnormalities. There is grade I diastolic dysfunction of the left ventricle (impaired relaxation pattern). The left ventricular ejection fraction is normal, estimated at 55-60%. Right Ventricle The right ventricle is normal in size and systolic function. The estimated right ventricular systolic pressure, 29 mmHg. Left Atrium The left atrium is normal by two-dimensional, color flow and Doppler imaging with no structural abnormalities, no thrombus formation present. Right Atrium The right atrium is normal by two-dimensional imaging, color flow and Doppler imaging with no structural abnormalities, no thrombus formation present. Atrial Septum The interatrial septum appears normal with no evidence of a shunt. Aorta The aorta is normal by two-dimensional, color flow and Doppler interrogation. Mitral Valve Moderate mitral regurgitation. Mild mitral annular calcification. Aortic Valve Mild thickening of the aortic valve leaflets. Aortic valve sclerosis. Diffuse calcification of the aortic valve. Tricuspid Valve There is mild tricuspid valve regurgitation. Pulmonic Valve The pulmonic vtrivial pulmonic valve regurgitation. Vessels The pulmonary artery appears normal. The inferior vena cava pulmonary and hepatic veins appear normal. Pericardium The pericardium is normal by two-dimensional imaging. There is no significant pericardial effusion. CONCLUSIONS indication: Hx of HF The transthoracic study is normal by two-dimensional, color flow imaging and Doppler interrogation. Normal left ventricular size and function. Approximate ejection fraction is 60%. moderate MAC with mild MR Aortic valve scleroticwith no stenosi Mild TR Johanny Obrien (Electronically Signed) Final Date: 11 October 2024 14:21
--- NOTE | 2024-10-11 17:27 | PC.SS ---
Rounding Note: Echo pending. PT evaluation ordered. Plan remains to stabilize blood sugar level.
[2024-10-11] MEDS: DONEPEZIL HCL 5 MG TABLET 10 MG PO (20:10)
[2024-10-11] MEDS: GABAPENTIN 200 MG, GABAPENTIN 600 MG 800 MG PO (21:07)
[2024-10-12] VITALS (8 sets, daily range): BP systolic 111–149; BP diastolic 63–90; PULSE 71–79; RESP 10–92; TEMP 36.4–36.8; O2SAT 91–98; BMI 22.9
[2024-10-12] MEDS: ALBUTEROL/IPRATROPIUM (Duoneb) RT SOL 3 ML NEBU INH ×3 (00:52→13:53)
[2024-10-12 05:57] LABS: Basophils % (Auto) 0 % (0-2.5); Eosinophils # (Auto) 0.3 Thou/mm3 (0.0-0.5); Eosinophils % (Auto) 3 % (0-10); Hematocrit 31.8 % (41.0-53.0); Hemoglobin 10.6 g/dL (13.5-16.0); Immature Granulocytes % (Auto) 0 % (0-0); Immature Granulocytes Auto 0.02 Thou/mm3 (0.00-0.00); Lymphocytes # (Auto) 1.2 Thou/mm3 (1.0-4.8); Lymphocytes % (Auto) 14 % (10-50); Mean Corpuscular HGB Conc 33.3 g/dl (31.0-37.0); Mean Corpuscular Volume 90 fL (80-100); Monocytes # (Auto) 0.5 Thou/mm3 (0.0-0.8); Monocytes % (Auto) 6 % (0-12); Neutrophils # (Auto) 6.3 Thou/mm3 (1.8-7.7); Neutrophils % (Auto) 76 % (37-80); Nucleated Red Blood Cell % 0 /100 WBC (0); Platelet Count 201 Thou/mm3 (140-440); RDW Standard Deviation 43.6 fL (35.1-43.9); Red Blood Count 3.53 Miln/mm3 (4.50-5.90); White Blood Count 8.3 Thou/mm3 (3.8-10.6)
[2024-10-12 06:53] LABS: Alanine Aminotransferase 50 U/L (10-49); Albumin, Serum 3.6 gm/dL (3.4-4.8); Albumin/Globulin Ratio 1.5 (1.2-2.2); Alkaline Phosphatase 141 U/L (46-116); Anion Gap 7 (7-16); Aspartate Amino Transferase 22 U/L (0-34); BUN/Creatinine Ratio 13 Ratio (12-20); Bilirubin,Total 0.5 mg/dL (0.3-1.2); Blood Urea Nitrogen 12 mg/dL (9-23); Calcium 9.2 mg/dL (8.3-10.6); Calcium (Corrected) 9.5 mg/dL (8.5-10.1); Carbon Dioxide 21.9 mMol/L (20.0-31.0); Chloride 107 mMol/L (98-107); Creatinine (Component) 0.9 mg/dL (0.6-1.3); Estimated Creatinine Clearance 88.8 mL/min (>60); Globulin 2.4 gm/dL (2.3-3.5); Glucose 307 mg/dL (74-106); Magnesium 1.7 mg/dL (1.6-2.6); Osmolality,Calculated 283 (275-295); Phosphorous 2.7 mg/dL (2.4-5.1); Potassium 4.7 mMol/L (3.4-5.1); Sodium 136 mMol/L (136-145); eGFR > 60 See Note
[2024-10-12] MEDS: INSULIN LISPRO (AdmeLOG) 1 UNIT/0.01 ML UNIT SC ×3 (07:28→17:05)
[2024-10-12] MEDS: INSULIN LISPRO (AdmeLOG) 1 UNIT/0.01 ML UNIT 3 UNIT SC (07:28)
--- NOTE | 2024-10-12 07:38 | PC.SS ---
SNF referral submitted on [facility]. Awaiting responses.
--- NOTE | 2024-10-12 07:45 | PC.SS ---
PASSR completed. Level II Mental Health Evaluation referral is not required due to a Categorical Condition.?On-line closure pending.
[2024-10-12] MEDS: MEMANTINE HCL 5 MG TABLET 10 MG PO (09:49)
[2024-10-12] MEDS: PANTOPRAZOLE INJ 40 MG VIAL IVP (09:49)
[2024-10-12] MEDS: LEVOFLOXACIN 250 MG TABLET 750 MG PO (09:52)
[2024-10-12] MEDS: AZITHROMYCIN INJ 500 MG in SODIUM CHLORIDE 0.9% 250 ML 250 ML 250 MG IV (09:53)
[2024-10-12] MEDS: HEPARIN SOD INJ 5000 UNIT/ML VIAL SC (09:53)
--- NOTE | 2024-10-12 10:06 | PC.SS ---
SS contacted patient's , Irish to present SNF choices, patient's requested for patient to discharge to [facility]. SS contacted Jenna from [facility] and she is able to accept patient. SS will set up transportation with [facility] and close PASSR level 2.
--- NOTE | 2024-10-12 10:48 | PC.SS ---
Addendum entered by Josefina Huertas 10/12/24 15:49: SS follow up note; Patient's bood sugars have been stable, therefore will discharge today at 6PM. SS contacted patient's nurse in regards to ETA for 1800. SS also updated Jenna from [facility] and patient's ex , Irish. Addendum entered by Josefina Huertas 10/12/24 11:17: SS was contacted by Janet from [facility] with ETA for 1530. SS contacted patient's ex- and updated her with ETA as well as nurses station and Jenna from [facility]. Original Note: SS set up transportation for patient through [facility], Reference, # [id number]. SS notified [employer] Irlanda and she informed SS she would let patient's nurse know. SS also contacted patient's ex- and she verbalized understanding.
[2024-10-12] MEDS: oxyCODONE/APAP 5/325 TABLET 1 TAB PO ×2 (10:54→17:09)
[2024-10-12] MEDS: INSULIN GLARGINE (Lantus) 5 UNIT/0.05 ML (PER 5 UNITS) 8 UNIT SC (10:55)
[2024-10-12] MEDS: INSULIN HUM REGULAR 1 UNIT/0.01 ML (PER UNIT) 10 UNIT IV (10:55)
[2024-10-12] MEDS: INSULIN LISPRO (AdmeLOG) 1 UNIT/0.01 ML UNIT 5 UNIT SC ×2 (12:03→17:05)
--- NOTE | 2024-10-12 12:58 | PC.SS ---
DME referral for oxygen/walker submitted on [facility]. Awaiting responses.
--- NOTE | 2024-10-12 13:01 | PC.SS ---
BEAD INSPECTOR followed up with PASSR staff, Herbert Iqbal. PASSR to close patient's case. On line closure pending.
--- NOTE | 2024-10-12 13:57 | ESDS_ITS ---
<Statement entered by Gregory Beltran MD - 10/12/24 16:09> I saw and examined the patient, and I agree with current management stated by Dr Tg MD,PGY1. Plan of care was discussed with the attending physician and resident physician. Disclaimer: Despite multiple revisions, due to the dictation software being used, the document bellow may not be free of grammatical errors including phonetic/typographic errors. However, this does not deter from our commitment to providing health care in the patient's best interest in mind. Dr. Ruby MD, PGY 2 Planned Discharge Date 10/12/24 DS: Providers Provider Date of admission: 10/09/24 13:14 Primary care physician: Physician No Primary/Family Admitting Provider: Abdiaziz Mckinnon DO Attending Provider on Admission: Abdiaziz Mckinnon DO Consults: 10/09/24 13:21 Referral Physical Therapy Routine Comment: Physician Instructions: Attending Provider on DC: Marcos Mas MD Discharging Provider: Marcos Mas MD DS: Diagnosis Problem List Completed Was Problem List Reviewed/Reconciled?: Yes Hospital Course Hospital Course Hospital course: Darion Abebe is a 69-y/o male with a PMHx vascular dementia, HTN, IDDM, diabetic neuropathy, history of diabetic foot, chronic pain on oxycodone who presented on 10/09 with altered mental status and confusion, more than his usual state per ex- who was present at bedside during initial presentation. Patient was also endorsing urinary frequency, urgency, and dysuria with associated fever/chills, and loss of balance for the last few days. Had a ground-level fall at home while getting out of bed and in ED had a code star during CT imaging after he fell on his back. He was also noted to have multiple code thai called on him for significant agitation and required physical constraints. Per ex-, patient has a history of balance issues and follows up with Dr. York as outpatient and PCP is Dr. Toribio. In the ED, patient was hypotensive with blood pressure 99/64, heart rate 79, respiratory 16, fever of 101.1, and hypoxic at 84% on room air. He was placed on 4 L oxygen which improved saturation to 90%. WBC Cr 1.6 (baseline 0.8), lactic acid 2.6, Pro-Donovan 18, and elevated transaminases. Ammonia negative, troponin negative, and BNP 177. Met 2/4 SIRS criteria with fever and white count elevation with possible source of infection being UTI and pneumonia and admitted for management of same. Throughout hospital stay, no acute events noted. WBC down trended to within normal limits while on ceftriaxone and and acute kidney injury resolved with IVF resuscitation. However, urine culture grew E. coli and ESBL Klebsiella, and thus ceftriaxone switched to levofloxacin. LFTs down trended during stay, however hepatitis panel showed HCV positive and patient has been aware of his diagnosis for 25 years. Also, blood sugars remained difficult to control with peak of 405. Eventually was on total of 36 units glargine with 5 units TIDWM of lispro and sugars down to 191 - but will discharge on 30 units glargine BID and to continue home metformin and Trulicity. As noted above, urine culture grew E. coli and ESBL Klebsiella and will be discharged with 9 more days of levofloxacin. Diagnoses during admission: #Acute on chronic encephalopathy, improved #Chronic encephalopathy, likely secondary to #Vascular dementia #Sepsis, resolved, secondary to #UTI #GLF #Leukocytosis, resolved #Hypotension, resolved #Lactic acidosis, resolved #Acute hypoxic respiratory failure #Former smoker #Possible aspiration pneumonitis versus pneumonia #NELIDA, resolved #Transaminitis, improving #Cholelithiasis #History of HFrEF #IDDM #Hypoglycemia, resolved #Iron deficiency anemia #Chronic pain Discharge instructions: - Continue taking levofloxacin 750 mg daily for 9 more days - Stop taking insulin glargine 60 units daily and start taking 30 units of glargine twice daily (once in the morning and once at night) - Stop taking dapagliflozin, at least until you follow-up with your PCP - Stop taking Humulin/NPH 15 units, at least until you follow-up with your PCP - Otherwise, continue taking all other home medications as prescribed - Continue taking all other home medications as prescribed - Follow-up with PCP within 1 week of discharge - Return to the ED if symptoms worsen or recur ----- Plan discussed with attending physician Dr. Mckinnon and senior resident physician Dr. Ruby Mas MD PGY-1 Internal Medicine Time Spent with Patient Time attestation: Total time spent providing and/or coordinating discharge services: Exam Vital Signs Temp Pulse Resp BP Pulse Ox O2 Del Method O2 Flow Rate 98.2 F 77 10 L 121/67 96 Room Air 2 10/12/24 08:00 10/12/24 08:00 10/12/24 08:00 10/12/24 08:00 10/12/24 08:00 10/12/24 08:00 10/11/24 16:00 Discharge Plan Plan Patient Disposition: Xfer Skilled Nsg Fac (SNF) Care Plan Goals: - Continue taking levofloxacin 750 mg daily for 9 more days - Stop taking insulin glargine 60 units daily and start taking 30 units of glargine twice daily (once in the morning and once at night) - Stop taking dapagliflozin, at least until you follow-up with your PCP - Stop taking Humulin/NPH 15 units, at least until you follow-up with your PCP - Otherwise, continue taking all other home medications as prescribed - Continue taking all other home medications as prescribed - Follow-up with PCP within 1 week of discharge - Return to the ED if symptoms worsen or recur Prescriptions/Referrals Prescriptions/Med Rec: New levofloxacin 750 mg tablet 750 mg PO QDAY 9 Days Qty: 9 0RF insulin glargine [Lantus U-100 Insulin] 100 unit/mL solution 30 unit subcut BID Qty: 10 0RF Rx Instructions: Take lantus two times per day (DME) pen needle, diabetic [Ultra-Thin II Ins Pen [place]] 29 gauge x 1/2 needle See Rx Instructions .Route Qty: 100 0RF Rx Instructions: As directed Gvoke HypoPen 1-Pack 1 mg/0.2 mL auto-injector 1 mg subcut QDAY PRN (Reason: Hypoglyccemia) Qty: 0.2 5RF Continued Trulicity 1.5 mg/0.5 mL Pen Injector 1.5 mg SUBCUT QWEEK Rx Instructions: FILLED 05/2020. FRIDAYS. metformin 1,000 mg tablet 1,000 mg PO BID memantine 10 mg tablet 10 mg PO BID oxycodone 10 mg tablet 10 mg PO Q12H PRN (Reason: pain) Patient Comments: TAKE 1 TABLET BY MOUTH 1-2 TIMES A DAY NEEDED FOR 30 DAYS Trintellix 10 mg tablet 10 mg PO QDAY gabapentin 800 mg tablet 800 mg PO TID Patient Comments: TAKE 1 TABLET BY MOUTH 3 TIMES A DAY FOR NERVE PAIN donepezil 10 mg tablet 10 mg PO .PM Discontinued insulin aspart U-100 [Novolog FlexPen U-100 Insulin] 100 unit/mL (3 mL) Insulin Pen See Rx Instructions .ROUTE .COMPLEX Rx Instructions: per sliding scale up to 10 units per [facility]. dapagliflozin propanediol [Farxiga] 10 mg tablet 10 mg PO QDAY Humulin N NPH Insulin KwikPen 100 unit/mL (3 mL) insulin pen 15 unit SUBCUT TIDWM Patient Comments: INJECT 15 UNITS SUBCUTANEOUSLY 3 TIMES A DAY WITH MEALS FOR TYPE II DIABETES insulin glargine [Lantus Solostar U-100 Insulin] 100 unit/mL (3 mL) insulin pen 60 unit subcut .AM Referrals: No Primary/Family,Physician [Primary Care Provider] - Patient/Caregiver Discharge Instructions Education Materials: Urinary Tract Infections in Men Print Language: Bangladeshi Stand Alone Forms: Leanne Award Info., Patient Portal Info Letter Discharge Order Discharge Orders: Discharge (Routine); Ordered 10/12/24 Ordered By: Marcos Mas Quality Discharge Quality Measures VTE prophylaxis MD Attestestation MD Attestation I have discussed and was present for the essential components of the discharge history, physical examination, diagnosis, and discharge treatment plan with the resident. I agree with the patient's discharge care as documented by the resident and amended herein by me. Sergey Mckinnon DO. The patient understood all discharge instructions, all questions were answered satisfactorily. The patient was instructed to return to the Emergency Department is symptoms worsened or persisted. Patient's urine culture demonstrated ESBL Klebsiella and relatively pansensitive E. coli, will discharge the patient on levofloxacin 750 mg daily for an additional 9-days considering he did not have adequate treatment for the ESBL Klebsiella as we did not know sensitivities on admission. Blood glucose controlled on admission however will need better follow-up and control at home as his A1c was 10.1. Will continue to monitor closely, patient is amenable to being discharged to nursing facility for continued PT. Patient was stable, afebrile, tolerating p.o. intake and ambulatory at time of discharge. Although this document has been carefully reviewed, there may still be some phonetic and other typographical errors. These errors are purely grammatical due to imperfections in the software program and should not be construed in any way to compromise the substance of the patient's medical care during this visit.
== END 2024-10-12 18:25 | disposition skilled nursing facility (03) | DRG 871 ==
LOC: SERX 12:27 → SERHOLD 13:38 → S2NX 20:28
PROVIDERS: Student in an Organized Health Care Education/Training Program; Admitting Provider Student in an Organized Health Care Education/Training Program; Emergency Provider Emergency Medicine; Visit Provider Student in an Organized Health Care Education/Training Program
DX: A41.51 Sepsis due to Escherichia coli [E. coli] (principal); G93.41 Metabolic encephalopathy; J96.01 Acute respiratory failure with hypoxia; J69.0 Pneumonitis due to inhalation of food and vomit; J15.0 Pneumonia due to Klebsiella pneumoniae; N39.0 Urinary tract infection, site not specified; N17.9 Acute kidney failure, unspecified; I50.22 Chronic systolic (congestive) heart failure; E87.20 Acidosis, unspecified; I11.0 Hypertensive heart disease with heart failure; F01.50 Vascular dementia, unspecified severity, without behavioral disturbance, psychotic disturbance, mood disturbance, and anxiety; R29.6 Repeated falls; I95.9 Hypotension, unspecified; W01.0XXA Fall on same level from slipping, tripping and stumbling without subsequent striking against object, initial encounter; Z87.891 Personal history of nicotine dependence; Y92.230 Patient room in hospital as the place of occurrence of the external cause; D50.9 Iron deficiency anemia, unspecified; K80.20 Calculus of gallbladder without cholecystitis without obstruction; B19.20 Unspecified viral hepatitis C without hepatic coma; E11.40 Type 2 diabetes mellitus with diabetic neuropathy, unspecified; E11.649 Type 2 diabetes mellitus with hypoglycemia without coma; E87.5 Hyperkalemia; G89.29 Other chronic pain; Y92.009 Unspecified place in unspecified non-institutional (private) residence as the place of occurrence of the external cause; Z79.4 Long term (current) use of insulin; E86.0 Dehydration; Z79.84 Long term (current) use of oral hypoglycemic drugs; Z79.899 Other long term (current) drug therapy; Z79.891 Long term (current) use of opiate analgesic; Z88.2 Allergy status to sulfonamides
CPT/HCPCS: 36415; 70450; 71045; 72125; 73090; 76705; 80053; 80061; 80074; 80307; 80320; 81001; 82140; 82607; 82728; 83036; 83540; 83550; 83605; 83690; 83735; 83880; 84100; 84145; 84443; 84484; 85025; 85610; 85730; 86331; 86635; 87040; 87077; 87081; 87086; 87186; 87400; 87811; 93005; 93306; 94640; 97162; A9270; J0456; J0696; J1630; J1643; J1815; J2470; J3475; J7050; J7120; G0480

== ENCOUNTER → 2024-10-28 | Outpatient (CLI) | payer MEDICARE, MEDICAID, SELFPAY ==
[2024-10-28 11:06] LABS: Collection Type, Urine Clean Catch
[2024-10-28 11:42] LABS: Basophils # (Auto) 0.1 Thou/mm3 (0.0-0.2); Basophils % (Auto) 1 % (0-2.5); Eosinophils # (Auto) 0.5 Thou/mm3 (0.0-0.5); Eosinophils % (Auto) 8 % (0-10); Hematocrit 35.3 % (41.0-53.0); Hemoglobin 11.7 g/dL (13.5-16.0); Immature Granulocytes % (Auto) 0 % (0-0); Immature Granulocytes Auto 0.02 Thou/mm3 (0.00-0.00); Lymphocytes # (Auto) 2.3 Thou/mm3 (1.0-4.8); Lymphocytes % (Auto) 37 % (10-50); Mean Corpuscular HGB Conc 33.1 g/dl (31.0-37.0); Mean Corpuscular Hemoglobin 29.7 pg (25.0-35.0); Mean Corpuscular Volume 90 fL (80-100); Monocytes # (Auto) 0.7 Thou/mm3 (0.0-0.8); Monocytes % (Auto) 12 % (0-12); Neutrophils # (Auto) 2.5 Thou/mm3 (1.8-7.7); Neutrophils % (Auto) 41 % (37-80); Nucleated Red Blood Cell % 0 /100 WBC (0); Platelet Count 227 Thou/mm3 (140-440); Red Blood Count 3.94 Miln/mm3 (4.50-5.90); White Blood Count 6.1 Thou/mm3 (3.8-10.6)
[2024-10-28 11:46] LABS: Glucose Estimated Average 243 mg/dL (80-131); Hemoglobin A1C 10.1 % Hgb (4.8-6.0)
[2024-10-28 12:00] LABS: Bilirubin,Urine Negative (Negative); Blood,Urine 2+ (Negative); Clarity,Urine Clear (Clear/Hazy); Color,Urine Yellow (Lt Yel-Yel); Glucose, Urine Negative (Negative); Hyaline Casts,Urine 1 /hpf (0-1); Ketones,Urine Negative (Negative); Leukocyte Esterase,Urine Positive (Negative); Nitrite,Urine Negative (Negative); PH,Urine 5.5 (5.0-7.0); Protein,Urine 1+ (Neg - Trace); RBC,Urine 89 /hpf (0-3); Specific Gravity,Urine 1.038 (1.001-1.035); Squamous Epithelial Cell,Urine < 1 /hpf (0-5); WBC,Urine 6 /hpf (0-5)
[2024-10-28 12:07] LABS: Creatinine MALB Rnd Ur 225 mg/dL (30-125); Microalbumin Creat Ratio 34 mg/gCrea (<30); Microalbumin, Random Urine 77 mg/L (0-300)
[2024-10-28 12:07] LABS: Alanine Aminotransferase 18 U/L (10-49); Albumin, Serum 3.9 gm/dL (3.4-4.8); Albumin/Globulin Ratio 1.8 (1.2-2.2); Alkaline Phosphatase 117 U/L (46-116); Anion Gap 8 (7-16); Aspartate Amino Transferase 24 U/L (0-34); BUN/Creatinine Ratio 24 Ratio (12-20); Bilirubin,Total 0.5 mg/dL (0.3-1.2); Blood Urea Nitrogen 24 mg/dL (9-23); Calcium 9.2 mg/dL (8.3-10.6); Calcium (Corrected) 9.3 mg/dL (8.5-10.1); Carbon Dioxide 28.3 mMol/L (20.0-31.0); Cardiac Risk Estimate 2.5 RATIO (4.0-6.7); Chloride 105 mMol/L (98-107); Cholesterol 180 mg/dL (132-200); Globulin 2.2 gm/dL (2.3-3.5); Glucose 77 mg/dL (74-106); HDL Cholesterol 73 mg/dL (40-60); LDL Cholesterol,Calculated 95 mg/dL (0-130); Osmolality,Calculated 284 (275-295); Potassium 4.2 mMol/L (3.4-5.1); Sodium 141 mMol/L (136-145); Thyroid Stimulating Hormone 1.39 uIU/mL (0.55-4.78); Total Protein 6.1 gm/dL (5.7-8.2); Triglycerides 62 mg/dL (30-150); eGFR > 60 See Note
== END | disposition home or self-care (01) ==
LOC: COPL 10:06
PROVIDERS: PCP Family Medicine; Referring Provider Family Medicine; Visit Provider Family Medicine
DX: Z00.00 Encounter for general adult medical examination without abnormal findings (principal); E11.65 Type 2 diabetes mellitus with hyperglycemia; E78.2 Mixed hyperlipidemia; I10 Essential (primary) hypertension
CPT/HCPCS: 36415; 80053; 80061; 81001; 82043; 82570; 83036; 84443; 85025

== ENCOUNTER → 2025-01-17 | Outpatient (CLI) | payer MEDICARE, MEDICAID, SELFPAY ==
--- NOTE | 2025-01-17 14:22 | XR_ITS ---
Examination: MRI lumbar spine without contrast Date and time of exam: January 17, 2025 1503 hours Comparison July 30, 2023 INDICATIONS: Low back pain 5 years radiating down the legs Technique: Multiple MRI axial and sagittal sections lumbar spine. Sagittal T2-weighted images, TR 3500, TE 118 T1 weighted transverse sections, TR 688 T8.5, T2-weighted sagittal sections T1 weighted sagittal sections TR 621, TE 30 T2 axial sections, TR 4, 190, TE 84. Findings: No lumbar vertebral body fracture Moderate to advanced diffuse lumbar degenerative disc disease especially L5-S1 No spondylolisthesis Prominent lumbar spondylosis L5-S1 6 mm central lumbar disc bulge extending to the foraminal regions with mild bilateral L5 ganglionic compression L4-L5 no focal disc protrusion L3-L4 3 mm central lumbar disc bulge L2-L3 2 mm central lumbar disc bulge L1-L2 to millimeter central lumbar disc bulge IMPRESSION: Moderate to advanced diffuse lumbar degenerative disc disease, most prominent at L5-S1 L5-S1 6 mm central lumbar disc bulge extending to the foraminal regions with mild bilateral L5 ganglionic compression
== END | disposition home or self-care (01) ==
PROVIDERS: PCP Family Medicine; Referring Provider Physical Medicine & Rehabilitation Pain Medicine; Visit Provider Physical Medicine & Rehabilitation Pain Medicine
DX: M51.379 Other intervertebral disc degeneration, lumbosacral region without mention of lumbar back pain or lower extremity pain (principal); M47.816 Spondylosis without myelopathy or radiculopathy, lumbar region; M51.369 Other intervertebral disc degeneration, lumbar region without mention of lumbar back pain or lower extremity pain; G95.20 Unspecified cord compression
CPT/HCPCS: 72148

== ENCOUNTER → 2025-01-17 | Outpatient (CLI) | payer MEDICARE, MEDICAID, SELFPAY ==
--- NOTE | 2025-01-17 16:10 | XR_ITS ---
Examination: Knee, left , 3 views Technique: Knee AP, lateral, oblique 3 views Date and time of exam: January 17 2025 1613 hours INDICATIONS: Patient fell 3 months ago with injection of the knee, persistent knee pain. FINDINGS: No acute fracture Or dislocation No foreign body IMPRESSION: No acute fracture
== END | disposition home or self-care (01) ==
PROVIDERS: PCP Family Medicine; Referring Provider Physical Medicine & Rehabilitation Pain Medicine; Visit Provider Physical Medicine & Rehabilitation Pain Medicine
DX: M25.562 Pain in left knee (principal)
CPT/HCPCS: 73562

== ENCOUNTER → 2025-04-25 | Outpatient (CLI) | payer MEDICARE, MEDICAID, SELFPAY ==
[2025-04-25 11:42] LABS: Collection Type, Urine Clean Catch
[2025-04-25 12:05] LABS: Bilirubin,Urine Negative (Negative); Blood,Urine 2+ (Negative); Clarity,Urine Clear (Clear/Hazy); Color,Urine Yellow (Lt Yel-Yel); Glucose, Urine 4+ (Negative); Hyaline Casts,Urine < 1 /hpf (0-1); Ketones,Urine 3+ (Negative); Leukocyte Esterase,Urine Negative (Negative); Nitrite,Urine Negative (Negative); PH,Urine 5.5 (5.0-7.0); Protein,Urine 1+ (Neg - Trace); RBC,Urine 10 /hpf (0-3); Specific Gravity,Urine 1.026 (1.001-1.035); Squamous Epithelial Cell,Urine 1 /hpf (0-5); Urobilinogen,Urine Negative mg/dL (0.0-1.0); WBC,Urine 3 /hpf (0-5)
[2025-04-25 12:16] LABS: Basophils # (Auto) 0.0 Thou/mm3 (0.0-0.2); Basophils % (Auto) 1 % (0-2.5); Eosinophils # (Auto) 0.2 Thou/mm3 (0.0-0.5); Eosinophils % (Auto) 3 % (0-10); Hematocrit 37.8 % (41.0-53.0); Hemoglobin 13.1 g/dL (13.5-16.0); Immature Granulocytes Auto 0.02 Thou/mm3 (0.00-0.00); Lymphocytes # (Auto) 1.3 Thou/mm3 (1.0-4.8); Lymphocytes % (Auto) 18 % (10-50); Mean Corpuscular HGB Conc 34.7 g/dl (31.0-37.0); Mean Corpuscular Hemoglobin 30.3 pg (25.0-35.0); Mean Corpuscular Volume 87 fL (80-100); Monocytes # (Auto) 0.5 Thou/mm3 (0.0-0.8); Monocytes % (Auto) 7 % (0-12); Neutrophils # (Auto) 5.2 Thou/mm3 (1.8-7.7); Neutrophils % (Auto) 72 % (37-80); Nucleated Red Blood Cell # 0.00 Thou/mm3 (0.00-0.00); Nucleated Red Blood Cell % 0 /100 WBC (0); Platelet Count 234 Thou/mm3 (140-440); RDW Standard Deviation 40.1 fL (35.1-43.9); Red Blood Count 4.33 Miln/mm3 (4.50-5.90); White Blood Count 7.3 Thou/mm3 (3.8-10.6)
[2025-04-25 12:20] LABS: Glucose Estimated Average 194 mg/dL (80-131); Hemoglobin A1C 8.4 % Hgb (4.8-6.0)
[2025-04-25 12:21] LABS: Alanine Aminotransferase 15 U/L (10-49); Albumin, Serum 4.5 gm/dL (3.4-4.8); Albumin/Globulin Ratio 2.0 (1.2-2.2); Alkaline Phosphatase 104 U/L (46-116); Anion Gap 8 (7-16); Aspartate Amino Transferase 20 U/L (0-34); BUN/Creatinine Ratio 20 Ratio (12-20); Bilirubin,Total 0.7 mg/dL (0.3-1.2); Blood Urea Nitrogen 16 mg/dL (9-23); Calcium 10.1 mg/dL (8.3-10.6); Calcium (Corrected) 10.1 mg/dL (8.5-10.1); Carbon Dioxide 27.4 mMol/L (20.0-31.0); Cardiac Risk Estimate 2.9 RATIO (4.0-6.7); Chloride 102 mMol/L (98-107); Cholesterol 174 mg/dL (132-200); Creatinine (Component) 0.8 mg/dL (0.6-1.3); Globulin 2.3 gm/dL (2.3-3.5); Glucose 204 mg/dL (74-106); HDL Cholesterol 59 mg/dL (40-60); LDL Cholesterol,Calculated 91 mg/dL (0-130); Osmolality,Calculated 281 (275-295); Potassium 4.3 mMol/L (3.4-5.1); Sodium 137 mMol/L (136-145); Total Protein 6.8 gm/dL (5.7-8.2); Triglycerides 120 mg/dL (30-150); eGFR > 60 See Note
== END | disposition home or self-care (01) ==
LOC: COPL 11:00
PROVIDERS: PCP Family Medicine; Referring Provider Family Medicine; Visit Provider Family Medicine
DX: Z00.00 Encounter for general adult medical examination without abnormal findings (principal); E11.65 Type 2 diabetes mellitus with hyperglycemia; I10 Essential (primary) hypertension; E78.2 Mixed hyperlipidemia
CPT/HCPCS: 36415; 80053; 80061; 81001; 83036; 85025